=== PATIENT | female | born 1965 | race Caucasian/White ===

== ENCOUNTER 2016-07-05 12:34 | Emergency (ER) | payer MEDICARE ==
[~2016-07-05] VITALS: Ht 144.8 cm; Wt 72.6 kg
[~2016-07-05 12:34] MED LIST: ESCI20TA PO; LANTUS SC; QUET300T1 PO
[2016-07-05 12:52] VITALS: BP 145/84
--- NOTE | 2016-07-05 14:10 | NUR ---
Patient ambulated to bed 3 with family. RN evaluating patient at bedside.
--- NOTE | 2016-07-05 14:15 | NUR ---
PATIENT PRESENTS TO ED WITH C/O BUMP ON BOTTOM OF RIGHT FOOT X3 WEEKS. ALSO C/O SOB. DENIES N/V/D; SKIN IS PINK/WARM/DRY; AAOX4 WITH EVEN AND STEADY GAIT; LUNGS CLEAR BL; HR EVEN AND REGULAR; PT DENIES ANY FEVER, CP, OR COUGH AT THIS TIME; PATIENT STATES PAIN OF 8/10 AT THIS TIME; VSS; PATIENT POSITIONED FOR COMFORT; HOB ELEVATED; BEDRAILS UP X2; BED DOWN. ER MD MADE AWARE OF PT STATUS.
--- NOTE | 2016-07-05 14:58 | NUR ---
Dr. Leblanc evaluating patient at bedside.
[2016-07-05 15:30] VITALS: BP 115/78
--- NOTE | 2016-07-05 15:30 | NUR ---
Patient discharged with v/s stable. Written and verbal after care instructions given and explained. Patient verbalized understanding. Ambulatory with steady gait. All questions addressed prior to discharge. Advised to follow up with PMD.
== END 2016-07-05 15:30 | disposition home or self-care (01) ==
LOC: MED 12:34
DX: B07.9 Viral wart, unspecified (principal); R06.02 Shortness of breath; F03.90 Unspecified dementia, unspecified severity, without behavioral disturbance, psychotic disturbance, mood disturbance, and anxiety; J45.909 Unspecified asthma, uncomplicated; E11.9 Type 2 diabetes mellitus without complications; F17.210 Nicotine dependence, cigarettes, uncomplicated
CPT/HCPCS: 99283

== ENCOUNTER 2017-02-22 12:44 | Emergency (ER) | payer MEDICARE ==
[~2017-02-22] VITALS: Ht 149.9 cm; Wt 68.9 kg
[~2017-02-22 12:44] MED LIST changes: -ESCI20TA PO
[2017-02-22 13:31] VITALS: BP 106/67
[2017-02-22 17:43] LABS: BASOPHILS # (AUTO) 0.2 K/uL (0.00-0.22); HEMATOCRIT 44.1 % (36-48); HEMOGLOBIN 14.8 g/dL (12.0-16.0); LYMPHOCYTES # (AUTO) 1.8 K/uL (2.5-16.5); MEAN CORPUSCULAR HEMOGLOBIN 30 pg (27-31); MEAN CORPUSCULAR HGB CONC 34 g/dL (33-37); MEAN CORPUSCULAR VOLUME 89 fL (80-94); MONOCYTES # (AUTO) 0.3 K/uL (0.8-1.0); NEUTROPHILS # (AUTO) 2.2 K/uL (1.8-7.7); PLATELET COUNT (AUTO) 65 K/uL (140-450); RED BLOOD CELL COUNT(AUTO) 4.95 MIL/uL (4.20-5.40); RED CELL DISTRIBUTION WIDTH 13.4 % (11.6-13.7); WHITE BLOOD COUNT (AUTO) 4.5 K/uL (4.8-10.8)
[2017-02-22 17:59] LABS: APPEARANCE,URINE CLEAR (CLEAR); BILIRUBIN,URINE NEGATIVE (NEGATIVE); BLOOD, URINE NEGATIVE (NEGATIVE); LEUKOCYTE ESTERASE ,URINE NEGATIVE (NEGATIVE); NITRITE, URINE NEGATIVE (NEGATIVE); UGLUCOSE 3+ (NEGATIVE)
--- NOTE | 2017-02-22 18:00 | NUR ---
NO ANSWER IN ER LOBBY
--- NOTE | 2017-02-22 18:00 | NUR ---
PATIENT LEFT WITHOUT BEING SEEN BY DR. Isabel. NO FURTHER CARE PROVIDED FOR PATIENT.
[2017-02-22 18:28] LABS: ALBUMIN 3.3 g/dL (3.4-5.0); ANION GAP 11.9 (8-16); CARBON DIOXIDE 27.4 mmol/L (21-32); POTASSIUM 4.3 mmol/L (3.5-5.1); TOTAL BILIRUBIN 1.3 mg/dL (0.0-1.0)
[2017-02-22 18:29] LABS: COLOR,URINE YELLOW (YELLOW)
--- NOTE | 2017-02-22 18:30 | NUR ---
NO ANSWER IN ER LOBBY
--- NOTE | 2017-02-22 18:38 | NUR ---
LAB NOTIFIED BLOOD SUGAR 428, MD NOTIFIED PT HAS LEFT THE ER
== END 2017-02-22 18:00 | disposition left against medical advice (07) ==
LOC: MED 12:44
DX: R10.12 Left upper quadrant pain (principal); Z53.21 Procedure and treatment not carried out due to patient leaving prior to being seen by health care provider
CPT/HCPCS: 36415; 80053; 81003; 82948; 83690; 85025; 99281

== ENCOUNTER 2017-09-17 10:16 | Emergency (ER) | payer MEDICARE ==
[~2017-09-17] VITALS: Ht 147.3 cm; Wt 70.8 kg
[2017-09-17 10:24] VITALS: BP 146/91
[2017-09-17] MEDS ORDERED: LACTULOSE 20 GM/30 ML UDC PO ONE (10:40)
[2017-09-17] MEDS ORDERED: SODIUM PHOSPHATE 118 ML ENEM RC ONE (10:40)
[2017-09-17] MEDS ORDERED: KETOROLAC 60 MG/2 ML VIAL IM ONE (10:40)
--- NOTE | 2017-09-17 10:40 | NUR ---
PT. CAME INTO THE ED DUE TO ABD PAIN X 1 MONTH. DENIES ANY N/V/D. PT. HAS 9/10 PAIN THAT IS DESCRIBED CRAMPING ALL OVER ABD X 1 MONTH. PT. HAS ROUND AND SOFT ABD UPON PALPATION. LNM: YESTERDAY PT. STATES " I WENT BUT I WENT A LITTLE BIT AND IT IS VERY HARD IT HURTS". PT. DENIES ANY FEVERS. BS ACTIVE X4 QUADRANTS. ER MD NOTIFIED. WILL CONTINUE TO MONITOR. BED IN LOWEST POSITION.
--- NOTE | 2017-09-17 11:07 | NUR ---
PT. AMBULATED TO RESTROOM W/ STEADY GAIT. WILL CONTINUE TO MONITOR.
[2017-09-17 11:09] LABS: APPEARANCE,URINE CLEAR (CLEAR); BILIRUBIN,URINE NEGATIVE (NEGATIVE); BLOOD, URINE TRACE-L (NEGATIVE); COLOR,URINE YELLOW (YELLOW); LEUKOCYTE ESTERASE ,URINE NEGATIVE (NEGATIVE); NITRITE, URINE NEGATIVE (NEGATIVE); UGLUCOSE NEGATIVE (NEGATIVE)
[2017-09-17 11:21] LABS: RBC,URINE NONE SEEN /HPF (0-5); WBC,URINE NONE SEEN /HPF (0-5)
[2017-09-17 11:45] VITALS: BP 140/86
--- NOTE | 2017-09-17 11:45 | NUR ---
Patient discharged with v/s stable. Written and verbal after care instructions given and explained. Patient alert, oriented and verbalized understanding of instructions. Ambulatory with steady gait. All questions addressed prior to discharge. ID band removed. Patient advised to follow up with PMD. Rx of lactulose given. Patient educated on indication of medication including possible reaction and side effects. Opportunity to ask questions provided and answered.
== END 2017-09-17 11:45 | disposition home or self-care (01) ==
LOC: MED 10:16
DX: K59.03 Drug induced constipation (principal); T40.605A Adverse effect of unspecified narcotics, initial encounter; K56.41 Fecal impaction; Y92.89 Other specified places as the place of occurrence of the external cause; J45.909 Unspecified asthma, uncomplicated; E11.9 Type 2 diabetes mellitus without complications; F03.90 Unspecified dementia, unspecified severity, without behavioral disturbance, psychotic disturbance, mood disturbance, and anxiety; Z79.899 Other long term (current) drug therapy
CPT/HCPCS: 74018; 81001; 81025; 96372; 99285; J1885; Q0092

== ENCOUNTER 2017-10-11 15:32 | Emergency (ER) | payer MEDICARE ==
[~2017-10-11] VITALS: Ht 144.8 cm; Wt 67.6 kg
[2017-10-11 15:55] VITALS: BP 150/72
[2017-10-11 16:00] VITALS: BP 150/72
--- NOTE | 2017-10-11 16:02 | NUR ---
PATIENT AMB. TO BED #10
--- NOTE | 2017-10-11 19:05 | NUR ---
PT LEFT WITHOUT MD TO SEEN AT THIS TIME.
== END 2017-10-11 19:05 | disposition left against medical advice (07) ==
LOC: MED 15:32
DX: M25.562 Pain in left knee (principal); Z53.21 Procedure and treatment not carried out due to patient leaving prior to being seen by health care provider
CPT/HCPCS: 81002; 81025; 82948

== ENCOUNTER 2019-11-09 08:39 | Emergency (ER) | payer BC, MEDICARE ==
[~2019-11-09] VITALS: Ht 151.1 cm; Wt 70.3 kg
[2019-11-09 08:46] VITALS: BP 179/127
--- NOTE | 2019-11-09 08:50 | NUR ---
PT AMBULATED TO ER BED 11
--- NOTE | 2019-11-09 08:55 | NUR ---
54 YO female co right upper quad pain. pain is mostly in the lower back. denies n/v/d. no injury. Pt states hx gallstones. Hx- gallstones NKA
--- NOTE | 2019-11-09 08:55 | NUR ---
DR. MARIE EVALUATING PT AT BEDSIDE
[2019-11-09] MEDS ORDERED: NACL 0.9% 500 ML IV ONE (09:01)
[2019-11-09] MEDS ORDERED: KETOROLAC 30 MG/ML VIAL IVP ONE (09:05)
[2019-11-09 09:33] LABS: BASOPHILS % (AUTO) 0.6 % (0.0-2.0); EOSINOPHILS # (AUTO) 0.1 K/uL (0-0.4); LYMPHOCYTES # (AUTO) 1.1 K/uL (2.5-16.5); LYMPHOCYTES % (AUTO) 26.8 % (20.5-51.1); MEAN CORPUSCULAR HEMOGLOBIN 28 pg (27-31); MEAN CORPUSCULAR HGB CONC 34 g/dL (33-37); MEAN CORPUSCULAR VOLUME 80.6 fL (80-94); MONOCYTES # (AUTO) 0.2 K/uL (0.8-1.0); MONOCYTES % (AUTO) 5.7 % (1.7-9.3); NEUTROPHILS # (AUTO) 2.7 K/uL (1.8-7.7); NEUTROPHILS % (AUTO) 64.9 % (42.2-75.2); PLATELET COUNT (AUTO) 119 K/uL (140-450); RED BLOOD CELL COUNT(AUTO) 4.72 MIL/uL (4.20-5.40); RED CELL DISTRIBUTION WIDTH 13.9 % (11.6-13.7); WHITE BLOOD COUNT (AUTO) 4.2 K/uL (4.8-10.8)
[2019-11-09 09:51] LABS: ANION GAP 12.1 (8-16); CARBON DIOXIDE 26.1 mmol/L (21-32); CREATININE 0.9 mg/dL (0.6-1.3); POTASSIUM 4.2 mmol/L (3.5-5.1); TOTAL BILIRUBIN 0.6 mg/dL (0.0-1.0)
--- NOTE | 2019-11-09 09:59 | NUR ---
PT TAKEN TO RAD VIA MEGHANA
--- NOTE | 2019-11-09 11:01 | NUR ---
DR. MARIE SPEAKING W/ PT AT BEDSIDE
[2019-11-09 11:17] VITALS: BP 157/100
--- NOTE | 2019-11-09 11:18 | NUR ---
Patient discharged with v/s stable. Written and verbal after care instructions given and explained. Patient alert, oriented and verbalized understanding of instructions. Ambulatory with steady gait. All questions addressed prior to discharge. ID band removed. Patient advised to follow up with PMD. Rx of MINERAL OIL, MIRALAX AND TORADOL given. Patient educated on indication of medication including possible reaction and side effects. Opportunity to ask questions provided and answered.
== END 2019-11-09 11:18 | disposition home or self-care (01) ==
LOC: MED 08:39
DX: K59.00 Constipation, unspecified (principal); K80.20 Calculus of gallbladder without cholecystitis without obstruction; E11.65 Type 2 diabetes mellitus with hyperglycemia; E86.0 Dehydration; J45.909 Unspecified asthma, uncomplicated; F03.90 Unspecified dementia, unspecified severity, without behavioral disturbance, psychotic disturbance, mood disturbance, and anxiety; F17.200 Nicotine dependence, unspecified, uncomplicated; Z98.890 Other specified postprocedural states; Z79.4 Long term (current) use of insulin; Z79.899 Other long term (current) drug therapy
CPT/HCPCS: 36415; 74176; 80053; 81002; 83690; 85025; 96361; 96374; 99284; J1885; J7030; 81025

== ENCOUNTER 2019-12-22 10:45 | Emergency (ER) | payer BC ==
[~2019-12-22] VITALS: Ht 144.8 cm; Wt 68.0 kg
[2019-12-22 10:56] VITALS: BP 207/113
--- NOTE | 2019-12-22 11:02 | NUR ---
Dr. Patricia is evaluating the patient at bedside.
--- NOTE | 2019-12-22 11:23 | NUR ---
Called [facility].
--- NOTE | 2019-12-22 11:26 | NUR ---
Patient taken to CT scan via gurney by [facility] [employer].
--- NOTE | 2019-12-22 11:27 | NUR ---
54 Y/O FEMALE PRESENT TO ED C/C HEAD ACHE RADIATING TO NECK X1.5 WEEKS. PT STATES SHE HAS BEEN EXPERIENCING INCREASED DIZZINESS, N/V IN THE MORNING X3 DAYS. STATES HAVING DIFFICULTY AMBULATING AND USING CANE FOR ASSISTANCE. DENIES TRAUMA TO HEAD.PT STATES HAVING INCREASED SENSITIVITY TO LIGHT IN THE RIGHT EYE.DENIES ANY COUGH/SOB/FEVER. PT HAS BEEN TAKING EXCEDRIN FOR HEADACHE. NO NEURO DEFFICITS, AAOX4. STRENGTH EQUAL BILATERAL UPPER AND LOWER EXTREMITIES, SPEECH CLEAR, GCS 15. RX: LISINOPRIL 20MG PT STATES SHE TOOK TWO LISINOPRIL THIS MORNING DENIES ANY VISUAL CHANGES
--- NOTE | 2019-12-22 11:33 | NUR ---
Patient returned from CT scan. RN reevaluating the patient at bedside.
--- NOTE | 2019-12-22 11:37 | NUR ---
Dr. Patricia is reevaluating the patient at bedside.
[2019-12-22] MEDS ORDERED: KETOROLAC 15 MG/ML VIAL IVP ONE (12:25)
[2019-12-22] MEDS ORDERED: ENALAPRILAT 2.5 MG/2 ML VIAL IVP ONE (12:25)
[2019-12-22 12:45] LABS: BASOPHILS % (AUTO) 0.8 % (0.0-2.0); EOSINOPHILS # (AUTO) 0.1 K/uL (0-0.4); EOSINOPHILS % (AUTO) 1.5 % (0.0-4.0); HEMATOCRIT 38.4 % (36-48); HEMOGLOBIN 13.1 g/dL (12.0-16.0); LYMPHOCYTES # (AUTO) 1.6 K/uL (2.5-16.5); LYMPHOCYTES % (AUTO) 32.3 % (20.5-51.1); MEAN CORPUSCULAR HEMOGLOBIN 27 pg (27-31); MEAN CORPUSCULAR HGB CONC 34 g/dL (33-37); MEAN CORPUSCULAR VOLUME 80.1 fL (80-94); MONOCYTES # (AUTO) 0.3 K/uL (0.8-1.0); MONOCYTES % (AUTO) 6.6 % (1.7-9.3); NEUTROPHILS # (AUTO) 2.8 K/uL (1.8-7.7); NEUTROPHILS % (AUTO) 58.8 % (42.2-75.2); PLATELET COUNT (AUTO) 111 K/uL (140-450); RED BLOOD CELL COUNT(AUTO) 4.79 MIL/uL (4.20-5.40); RED CELL DISTRIBUTION WIDTH 14.5 % (11.6-13.7); WHITE BLOOD COUNT (AUTO) 4.8 K/uL (4.8-10.8)
[2019-12-22 12:57] LABS: ALBUMIN 2.8 g/dL (3.4-5.0); ANION GAP 12.6 (8-16); CARBON DIOXIDE 27.3 mmol/L (21-32); CREATININE 1.1 mg/dL (0.6-1.3); POTASSIUM 3.9 mmol/L (3.5-5.1); TOTAL BILIRUBIN 0.4 mg/dL (0.0-1.0)
--- NOTE | 2019-12-22 12:57 | NUR ---
critical systems technician at bedside.
--- NOTE | 2019-12-22 14:18 | NUR ---
Patient discharged with v/s stable. Written and verbal after care instructions given and explained. Patient alert, oriented and verbalized understanding of instructions. Ambulatory with steady gait. All questions addressed prior to discharge. ID band removed. Patient advised to follow up with PMD. Rx of NAPROXEN, ZOFRAN given. Patient educated on indication of medication including possible reaction and side effects. Opportunity to ask questions provided and answered.
[2019-12-22 14:24] VITALS: BP 162/91
== END 2019-12-22 14:18 | disposition home or self-care (01) ==
LOC: MED 10:45
DX: R51.9 Headache, unspecified (principal); F17.210 Nicotine dependence, cigarettes, uncomplicated; B19.20 Unspecified viral hepatitis C without hepatic coma; E11.9 Type 2 diabetes mellitus without complications; F03.90 Unspecified dementia, unspecified severity, without behavioral disturbance, psychotic disturbance, mood disturbance, and anxiety; I10 Essential (primary) hypertension; J45.909 Unspecified asthma, uncomplicated; Z71.6 Tobacco abuse counseling; Z98.890 Other specified postprocedural states; Z79.899 Other long term (current) drug therapy
CPT/HCPCS: 36415; 70450; 71045; 80053; 84484; 85025; 85610; 85730; 93005; 96374; 96375; 99285; J1885; J3490; Q0092

== ENCOUNTER 2020-01-27 12:28 | Emergency (ER) | payer BC ==
[~2020-01-27] VITALS: Ht 144.8 cm; Wt 67.1 kg
[2020-01-27 12:51] VITALS: BP 149/105
--- NOTE | 2020-01-27 13:55 | NUR ---
PT W/C ASSISTED TO [facility].Patient being evaluated by DR GRIFFIN at bedside.
--- NOTE | 2020-01-27 13:56 | NUR ---
SWETA GEIGER C/O RIGHT EYE PROBLEM, LOSS OF BALANCE, DIZZINESS X YESTERDAY. MED HX: HTN, DM, HLD,CATARACT RIGHT EYE VA: RIGHT EYE CATARACT, LEFT , BOTH EYE Addendum: 01/27/20 at 1358 by [facility] PT HAS AN APPOINTMENT FOR RIGHT EYE SURGERY TOMORROW.
--- NOTE | 2020-01-27 14:38 | NUR ---
PT AMBULATED TO RESTROOM WITH STEADY GAIT
--- NOTE | 2020-01-27 14:38 | NUR ---
PT RETURNED FROM CT VIA W/C
--- NOTE | 2020-01-27 14:39 | NUR ---
PT AMBULATED TO BED C WITH STEADY GAIT AND USE OF CANE
[2020-01-27 15:00] VITALS: BP 149/105
--- NOTE | 2020-01-27 15:40 | NUR ---
Patient discharged with v/s stable. Written and verbal after care instructions given and explained. Patient alert, oriented and verbalized understanding of instructions. Ambulatory with steady gait. All questions addressed prior to discharge. ID band removed. Patient advised to follow up with PMD.
== END 2020-01-27 15:40 | disposition home or self-care (01) ==
LOC: MED 12:28
DX: H49.9 Unspecified paralytic strabismus (principal); E11.9 Type 2 diabetes mellitus without complications; F17.210 Nicotine dependence, cigarettes, uncomplicated; E78.5 Hyperlipidemia, unspecified; Z98.890 Other specified postprocedural states; Z79.4 Long term (current) use of insulin; Z79.899 Other long term (current) drug therapy
CPT/HCPCS: 70450; 81002; 99284

== ENCOUNTER 2020-11-15 10:18 | Emergency (ER) | payer BC, SELFPAY ==
[~2020-11-15] VITALS: Ht 144.8 cm; Wt 61.7 kg
[2020-11-15 10:39] VITALS: BP 213/110
[2020-11-15] MEDS ORDERED: LACT-103 PO (12:02)
[2020-11-15] MEDS ORDERED: PRED20TA5 PO (12:02)
[2020-11-15] MEDS ORDERED: KETO5SOL7 RIGHT EYE (12:02)
[2020-11-15 12:23] VITALS: BP 205/118
== END 2020-11-15 12:23 | disposition home or self-care (01) ==
LOC: MED 10:18
DX: K59.00 Constipation, unspecified (principal); H10.9 Unspecified conjunctivitis; J45.909 Unspecified asthma, uncomplicated; I10 Essential (primary) hypertension; E11.9 Type 2 diabetes mellitus without complications; F03.90 Unspecified dementia, unspecified severity, without behavioral disturbance, psychotic disturbance, mood disturbance, and anxiety; F17.200 Nicotine dependence, unspecified, uncomplicated; Z79.899 Other long term (current) drug therapy; Z79.4 Long term (current) use of insulin
CPT/HCPCS: 99283

== ENCOUNTER 2020-12-30 07:29 | Emergency (ER) | payer BC, SELFPAY ==
[~2020-12-30] VITALS: Ht 144.8 cm; Wt 73.9 kg
[~2020-12-30 07:29] MED LIST changes: +KETO5SOL7 RIGHT EYE; +LACT-103 PO; +PRED20TA5 PO
[2020-12-30 07:37] VITALS: BP 211/115
--- NOTE | 2020-12-30 07:45 | NUR ---
PATIENT AMBULATED TO BED 4.
--- NOTE | 2020-12-30 07:46 | NUR ---
pt had to go to the bathroom, emt Le at bedside waiting to do ekg, ER/MD Dr. Tafoya notifted.
--- NOTE | 2020-12-30 07:49 | NUR ---
Dr. Tafoya at bedside evaluating patient.
--- NOTE | 2020-12-30 07:53 | NUR ---
EKG AT BEDSIDE.
[2020-12-30] MEDS ORDERED: NITROGLYCERIN 0.4 MG TAB SL ONE ×3 (07:55→09:00)
[2020-12-30] MEDS ORDERED: ASPIRIN 81 MG TAB.CHEW PO ONE (07:55)
--- NOTE | 2020-12-30 07:59 | NUR ---
55 Y/O F BIB SELF FROM HOME, PATIENT PRESENTS TO ED WITH SHARP CP FOR 1 WEEK, WORSENED THIS MORNING. PT STATES SHE IS ALSO HAVING SOME SOB AND STATES, "MY HEART IS HURTING". DENIES N/V/D; SKIN IS PINK/WARM/DRY; AAOX4 WITH EVEN AND STEADY GAIT; LUNGS CLEAR BL; HR EVEN AND TACHY AT 102 RATE; PT DENIES ANY FEVER OR COUGH AT THIS TIME; PATIENT STATES PAIN OF 9/10 AT THIS TIME; PATIENT POSITIONED FOR COMFORT; HOB ELEVATED; BEDRAILS UP X2; BED DOWN. ER MD MADE AWARE OF PT STATUS. PMH: DM2, HTN NKA MED: GABAPENTIN, SEROQUIL, BENZEPRIL
[2020-12-30 08:13] LABS: BASOPHILS % (AUTO) 0.5 % (0.0-2.0); EOSINOPHILS % (AUTO) 0.2 % (0.0-4.0); LYMPHOCYTES # (AUTO) 0.5 K/uL (2.5-16.5); LYMPHOCYTES % (AUTO) 7.9 % (20.5-51.1); MEAN CORPUSCULAR HEMOGLOBIN 27 pg (27-31); MEAN CORPUSCULAR HGB CONC 34 g/dL (33-37); MEAN CORPUSCULAR VOLUME 78.2 fL (80-94); MONOCYTES # (AUTO) 0.3 K/uL (0.8-1.0); MONOCYTES % (AUTO) 4.9 % (1.7-9.3); NEUTROPHILS # (AUTO) 5.4 K/uL (1.8-7.7); NEUTROPHILS % (AUTO) 86.5 % (42.2-75.2); PLATELET COUNT (AUTO) 139 K/uL (140-450); RED BLOOD CELL COUNT(AUTO) 4.48 MIL/uL (4.20-5.40); WHITE BLOOD COUNT (AUTO) 6.2 K/uL (4.8-10.8)
[2020-12-30] MEDS ORDERED: BENAZEPRIL 10 MG TAB PO STA (08:26)
[2020-12-30 08:35] LABS: ALBUMIN 2.4 g/dL (3.4-5.0); ANION GAP 10.6 (8-16); CARBON DIOXIDE 25.6 mmol/L (21-32); CREATININE 1.5 mg/dL (0.6-1.3); POTASSIUM 4.2 mmol/L (3.5-5.1); TOTAL BILIRUBIN 0.6 mg/dL (0.0-1.0)
[2020-12-30] MEDS ORDERED: INSU100I28 SQ (08:48)
[2020-12-30] MEDS ORDERED: [UNRECOGNIZED DRUG - CODE] PO (08:48)
[2020-12-30] MEDS ORDERED: BENA5TAB36 PO (08:48)
[2020-12-30] MEDS ORDERED: GABA100C PO (08:48)
[2020-12-30] MEDS ORDERED: CLONIDINE HYDROCHLORIDE 0.1 MG TAB PO ONE (09:20)
[2020-12-30] MEDS ORDERED: NACL 0.9% 500 ML IV ONE (09:20)
--- NOTE | 2020-12-30 09:23 | NUR ---
KAYLAH WAS SWABBED AT THIS TIME.
--- NOTE | 2020-12-30 10:20 | NUR ---
TEVIN YOUNG IN ROOM AT THIS TIME STARTING US GUIDED IV.
--- NOTE | 2020-12-30 10:27 | NUR ---
PT TAKEN TO CT AT THIS TIME.
--- NOTE | 2020-12-30 10:45 | NUR ---
PT AMBULATED WITH EVEN AND STEADY GAIT TO BATHROOM AT THIS TIME.
[2020-12-30] MEDS ORDERED: LABETALOL 100 MG/20 ML VIAL IVP ONE ×2 (11:00→11:35)
[2020-12-30 11:25] LABS: FREE T4 (FREE THYROXINE) 0.55 ng/dL (0.76-1.46); THYROID STIMULATING HORMONE 1.15 uIU/mL (0.34-3.74)
--- NOTE | 2020-12-30 11:42 | NUR ---
PT AMBULATED WITH EVEN AND STEADY GAIT TO BATHROOM, PT RETURNED TO ROOM AND WAS GIVEN SUGAR FREE JELLO AT THIS TIME, PER TEVIN WEBER OKAY.
--- NOTE | 2020-12-30 13:16 | NUR ---
CAME BACK FROM LUNCH BREAK, PT MISSING, NOT IN BATHROOMS, OTHER ROOMS OR LOBBY. MIXING AND MOLDING MACHINE OPERATOR NOTIFIED AT THIS TIME.
[2020-12-30] MEDS ORDERED: ACETAMINOPHEN 325 MG TAB PO PRN (13:25)
[2020-12-30] MEDS ORDERED: guaiFENesin DM 200/20 MG-10 ML 10 ML UDC PO PRN (13:25)
[2020-12-30] MEDS ORDERED: HYDROcodone/APAP 7.5/325 MG 1 TAB PO PRN (13:25)
[2020-12-30] MEDS ORDERED: ZOLPIDEM 5 MG TAB PO PRN (13:25)
[2020-12-30] MEDS ORDERED: ONDANSETRON 4 MG/2 ML VIAL IM/IVP PRN (13:25)
[2020-12-30] MEDS ORDERED: POTASSIUM CHLORIDE 10 MEQ TABER PO PRN (13:25)
[2020-12-30] MEDS ORDERED: DOCUSATE SODIUM 100 MG GELCAP PO PRN (13:25)
--- NOTE | 2020-12-30 13:29 | NUR ---
PATIENT ELOPED FROM FACILITY. DISCHARGE INSTRUCTIONS NOT GIVEN TO PATIENT. and er/md Dr. Tafoya NOTIFIED.
[2020-12-30] MEDS ORDERED: hydrALAZINE 20 MG/ML VIAL IVP PRN (13:30)
[2020-12-30] MEDS ORDERED: DEXTROSE 50% 50 ML SYR IVP PRN (13:30)
[2020-12-30] MEDS ORDERED: INSULIN LISPRO SLIDING SCALE 100 UNITS/ML VIAL SUBQ PRN (13:30)
--- NOTE | 2020-12-30 13:30 | NUR ---
[employer] WAS CALLED FOR PT ELOPEMENT WITH IV PLACEMENT. SECURITY CONFIRMED PT WAS IN CAR AND LEFT. SECURITY UNABLE TO GIVE DESCRIPTION OF CAR. SPOKE WITH ELLYN, WAS REFERRED TO [facility].
[2020-12-30 13:33] VITALS: BP 183/97
--- NOTE | 2020-12-30 13:33 | NUR ---
Called susan sparks for welfare check s/p pt ELOPED with 2 IV in her rt arm/ac
[2020-12-30 13:54] LABS: PROTHROMBIN TIME 10.3 secs (10.8-13.4)
[2020-12-30] MEDS ORDERED: METOPROLOL 50 MG TAB PO SCH (14:00)
[2020-12-30 14:20] LABS: APPEARANCE,URINE CLEAR (CLEAR); BILIRUBIN,URINE NEGATIVE (NEGATIVE); BLOOD, URINE 3+ (NEGATIVE); COLOR,URINE YELLOW (YELLOW); LEUKOCYTE ESTERASE ,URINE NEGATIVE (NEGATIVE); NITRITE, URINE NEGATIVE (NEGATIVE); UGLUCOSE 3+ (NEGATIVE)
[2020-12-30 14:32] LABS: RBC,URINE 20-50 /HPF (0-5); WBC,URINE NONE SEEN /HPF (0-5)
[2020-12-30 14:47] LABS: ALBUMIN 2.5 g/dL (3.4-5.0); ANION GAP 11.1 (8-16); CARBON DIOXIDE 25.4 mmol/L (21-32); CHOL/HDL RATIO 5.3 (1-4.5); CREATININE 1.4 mg/dL (0.6-1.3); FREE T4 (FREE THYROXINE) 0.58 ng/dL (0.76-1.46); MAGNESIUM 1.8 mg/dL (1.8-2.4); PHOSPHORUS 4.6 mg/dL (2.5-4.9); POTASSIUM 4.5 mmol/L (3.5-5.1); THYROID STIMULATING HORMONE 1.1 uIU/mL (0.34-3.74); TOTAL BILIRUBIN 0.6 mg/dL (0.0-1.0)
[2020-12-30 15:13] LABS: BARBITURATE, URINE NEGATIVE ng/ml (NEG <=200); BENZODIAZEPINE, URINE NEGATIVE ng/mL (NEG <=200); CANNABINOID, URINE POSITIVE ng/mL (NEG <=50); COCAINE, URINE NEGATIVE ng/mL (NEG <=300); OPIATE, URINE POSITIVE ng/mL (NEG <=2000); PHENCYCLIDINE SCREEN,URINE NEGATIVE ng/mL (NEG <=25)
[2020-12-30] MEDS ORDERED: BLOOD GLUCOSE MONITORING 1 DEV DEV FS SCH (16:30)
[2020-12-30] MEDS ORDERED: QUEtiapine FUMARATE 100 MG TAB PO SCH (21:00)
[2020-12-30] MEDS ORDERED: INSULIN LANTUS 100 UNITS/ML 10 ML VIAL SUBQ SCH (21:00)
[2020-12-31] MEDS ORDERED: GABAPENTIN 100 MG CAP PO SCH (09:00)
[2020-12-31] MEDS ORDERED: PANTOPRAZOLE 40 MG TABEC PO SCH (09:00)
[2020-12-31 09:42] LABS: T4 (THYROXINE) 3.7 ug/dL (4.5 - 12.0)
--- NOTE | 2021-01-05 00:22 | NUR ---
LATE ENTRY- NS BOLUS DISCONTINUED AT 1040
== END 2020-12-30 13:23 | disposition admitted as inpatient to this hospital (09) ==
LOC: MED 07:29 → MTU 13:23 → MED 13:23 → UNDOADMIN 13:23 → UNDODISIN 13:29
DX: I16.1 Hypertensive emergency (principal); N17.0 Acute kidney failure with tubular necrosis; G93.41 Metabolic encephalopathy; E43 Unspecified severe protein-calorie malnutrition; I10 Essential (primary) hypertension; E11.9 Type 2 diabetes mellitus without complications; Z20.822 Contact with and (suspected) exposure to COVID-19; J45.909 Unspecified asthma, uncomplicated; F17.210 Nicotine dependence, cigarettes, uncomplicated; E87.1 Hypo-osmolality and hyponatremia; Z68.35 Body mass index [BMI] 35.0-35.9, adult
CPT/HCPCS: 36415; 71045; 71275; 80053; 80061; 80305; 81001; 82150; 83036; 83690; 83735; 83880; 84100; 84436; 84439; 84443; 84479; 84484; 85025; 85379; 85610; 85730; 87426; 93005; 96361; 96374; 96375; 99291; J3490; Q0092; Q9967; 96376; 99285; J1815

== ENCOUNTER 2022-01-20 10:19 | Emergency (ER) | payer BC ==
[~2022-01-20] VITALS: Ht 147.3 cm; Wt 70.3 kg
[~2022-01-20 10:19] MED LIST changes: +BENA5TAB36 PO; +GABA100C PO; +INSU100I28 SQ; +[UNRECOGNIZED DRUG - CODE] PO
[2022-01-20 10:26] VITALS: BP 138/84
--- NOTE | 2022-01-20 11:41 | NUR ---
C/O LEFT SIDED FACIAL [id number], DENIES TRAUMA/INJURY, PER PT SHE "SLEPT ON THAT SIDE TOO LONG', NO SWELLING, REDNESS OR OVERT DEFORMITIES NOTED NKA PMH: DM, HTN
[2022-01-20] MEDS ORDERED: NAPR-54 PO (11:50)
[2022-01-20] MEDS ORDERED: AMOX-999 PO (11:50)
== END 2022-01-20 12:00 | disposition home or self-care (01) ==
LOC: MED 10:19
DX: K08.89 Other specified disorders of teeth and supporting structures (principal); J45.909 Unspecified asthma, uncomplicated; E11.9 Type 2 diabetes mellitus without complications; I10 Essential (primary) hypertension; Z79.899 Other long term (current) drug therapy; Z79.4 Long term (current) use of insulin
CPT/HCPCS: 99283

== ENCOUNTER 2022-06-20 12:08 | Emergency (ER) | payer BC ==
[~2022-06-20] VITALS: Ht 149.9 cm; Wt 70.3 kg
[~2022-06-20 12:08] MED LIST changes: +AMOX-999 PO; +KETO5DRO68 RIGHT EYE; -KETO5SOL7 RIGHT EYE; +NAPR-54 PO
[2022-06-20 12:11] VITALS: BP 181/96
--- NOTE | 2022-06-20 12:44 | NUR ---
57 YO FEMALE PRESENTS TO THE ED FOR HIGH BLOOD PRESSURE SBP IN THE 180S PER PATIENT SON. PATIENT STATES SHE FELT DIZZY. WAS IN THE HOSPITAL FOR ABOUT A MONTH BECAUSE OF FUNGAL INFECTION IN HER SINUSES. HX OF STROKE IN MARCH, LEFT EYE BLINDNESS, RIGHT EYE CATARACT, DIABETES,
[2022-06-20] MEDS ORDERED: hydrALAZINE 20 MG/ML VIAL IVP ONE ×2 (12:55→14:05)
--- NOTE | 2022-06-20 13:21 | NUR ---
PATIENT TAKEN TO CT
[2022-06-20 13:52] LABS: BASOPHILS # (AUTO) 0.1 K/uL (0.00-0.22); BASOPHILS % (AUTO) 1.3 % (0.0-2.0); EOSINOPHILS # (AUTO) 0.1 K/uL (0-0.4); EOSINOPHILS % (AUTO) 1.9 % (0.0-4.0); HEMATOCRIT 24.9 % (36-48); HEMOGLOBIN 8.5 g/dL (12.0-16.0); LYMPHOCYTES % (AUTO) 21.3 % (20.5-51.1); MEAN CORPUSCULAR HEMOGLOBIN 29 pg (27-31); MEAN CORPUSCULAR HGB CONC 34 g/dL (33-37); MEAN CORPUSCULAR VOLUME 85.1 fL (80-94); MONOCYTES # (AUTO) 0.3 K/uL (0.8-1.0); MONOCYTES % (AUTO) 6.6 % (1.7-9.3); NEUTROPHILS # (AUTO) 3.3 K/uL (1.8-7.7); NEUTROPHILS % (AUTO) 68.9 % (42.2-75.2); PLATELET COUNT (AUTO) 140 K/uL (140-450); RED BLOOD CELL COUNT(AUTO) 2.92 MIL/uL (4.20-5.40); RED CELL DISTRIBUTION WIDTH 16.3 % (11.6-13.7); WHITE BLOOD COUNT (AUTO) 4.8 K/uL (4.8-10.8)
[2022-06-20 14:08] LABS: ALBUMIN 2.1 g/dL (3.4-5.0); ANION GAP 12.4 (8-16); ASPARTATE AMINOTRANSFERASE 56 U/L (15-37); CARBON DIOXIDE 24.2 mmol/L (21-32); CHLORIDE 108 mmol/L (98-107); CREATININE 2.3 mg/dL (0.6-1.3); GFR ARICAN-AMERICAN 28 mL/min (>90); GLUCOSE 249 mg/dL (74-106); POTASSIUM 5.6 mmol/L (3.5-5.1); SODIUM SERUM 139 mmol/L (136-145); TOTAL BILIRUBIN 0.3 mg/dL (0.0-1.0); UREA NITROGEN, BLOOD 37 mg/dL (7-18)
[2022-06-20] MEDS ORDERED: SODIUM ZIRCONIUM CYCLOSILICATE 10 GM POWD.PACK PO ONE (14:30)
[2022-06-20 15:17] VITALS: BP 157/81
--- NOTE | 2022-06-20 15:18 | NUR ---
Patient discharged with v/s stable. Written and verbal after care instructions given and explained. Patient verbalized understanding. Wheel Chair Assisted with to car. All questions addressed prior to discharge. Advised to follow up with PMD.
[2022-06-20 15:48] LABS: APPEARANCE,URINE CLEAR (CLEAR); BILIRUBIN,URINE NEGATIVE (NEGATIVE); BLOOD, URINE TRACE-I (NEGATIVE); COLOR,URINE YELLOW (YELLOW); LEUKOCYTE ESTERASE ,URINE NEGATIVE (NEGATIVE); NITRITE, URINE NEGATIVE (NEGATIVE); PH,URINE 7.5 (5.0-9.0); UGLUCOSE 2+ (NEGATIVE)
[2022-06-20 16:02] LABS: RBC,URINE 0-5 /HPF (0-5); WBC,URINE 0-5 /HPF (0-5)
== END 2022-06-20 15:17 | disposition home or self-care (01) ==
LOC: MED 12:08
DX: E11.22 Type 2 diabetes mellitus with diabetic chronic kidney disease (principal); I12.9 Hypertensive chronic kidney disease with stage 1 through stage 4 chronic kidney disease, or unspecified chronic kidney disease; N18.9 Chronic kidney disease, unspecified; E87.5 Hyperkalemia; J45.909 Unspecified asthma, uncomplicated; Z86.73 Personal history of transient ischemic attack (TIA), and cerebral infarction without residual deficits; Z98.890 Other specified postprocedural states; Z79.899 Other long term (current) drug therapy; Z79.4 Long term (current) use of insulin; Z79.1 Long term (current) use of non-steroidal anti-inflammatories (NSAID); Z79.2 Long term (current) use of antibiotics
CPT/HCPCS: 36415; 70450; 71045; 80053; 81001; 84484; 85025; 93005; 96374; 99285; J0360; Q0092

== ENCOUNTER 2022-10-22 11:19 | Inpatient (IN) | payer BC ==
[~2022-10-22] VITALS: Ht 144.8 cm; Wt 79.8 kg
[2022-10-22 11:19] VITALS: BP 179/104; PULSE 100; RESP 10; TEMP 97.8; O2SAT 99
[2022-10-22 13:12] LABS: ALBUMIN 0.9 g/dL (3.4-5.0); ANION GAP 9.9 (8-16); CALCIUM 6.9 mg/dL (8.5-10.1); CREATININE 3.7 mg/dL (0.6-1.3); POTASSIUM 4.9 mmol/L (3.5-5.1); TOTAL BILIRUBIN 0.1 mg/dL (0.0-1.0); TOTAL PROTEIN, SERUM 4.6 g/dL (6.4-8.2)
[2022-10-22 13:14] LABS: LIPASE 26 U/L (73-393)
[2022-10-22 13:25] LABS: BASOPHILS % (AUTO) 0.6 % (0.0-2.0); EOSINOPHILS # (AUTO) 0.1 K/uL (0-0.4); EOSINOPHILS % (AUTO) 1.6 % (0.0-4.0); HEMATOCRIT 22.9 % (36-48); HEMOGLOBIN 7.8 g/dL (12.0-16.0); LYMPHOCYTES % (AUTO) 27.4 % (20.5-51.1); MEAN CORPUSCULAR HEMOGLOBIN 30 pg (27-31); MEAN CORPUSCULAR HGB CONC 34 g/dL (33-37); MEAN CORPUSCULAR VOLUME 87.8 fL (80-94); MONOCYTES # (AUTO) 0.3 K/uL (0.8-1.0); MONOCYTES % (AUTO) 7.8 % (1.7-9.3); NEUTROPHILS # (AUTO) 2.4 K/uL (1.8-7.7); NEUTROPHILS % (AUTO) 62.6 % (42.2-75.2); PLATELET COUNT (AUTO) 164 K/uL (140-450); RED BLOOD CELL COUNT(AUTO) 2.61 MIL/uL (4.20-5.40); RED CELL DISTRIBUTION WIDTH 14.7 % (11.6-13.7); WHITE BLOOD COUNT (AUTO) 3.8 K/uL (4.8-10.8)
[2022-10-22] MEDS ORDERED: CALCIUM GLUCONATE 10% 1,000 MG in NACL 0.9% 50 ML IV ONE (13:40)
[2022-10-22 13:53] LABS: APPEARANCE,URINE CLEAR (CLEAR); BILIRUBIN,URINE NEGATIVE (NEGATIVE); BLOOD, URINE NEGATIVE (NEGATIVE); COLOR,URINE YELLOW (YELLOW); LEUKOCYTE ESTERASE ,URINE NEGATIVE (NEGATIVE); NITRITE, URINE NEGATIVE (NEGATIVE); PROTEIN,URINE 3+ (NEGATIVE); UGLUCOSE TRACE (NEGATIVE); UROBILINOGEN,URINE 0.2 EU/dL (0.2 - 1)
[2022-10-22 14:09] LABS: BACTERIA,URINE 2+ /HPF (None Seen); RBC,URINE 0-5 /HPF (0-5); SQUAMOUS EPITHELIAL CELL,UR 80-100 /LPF (0-3 (FEW)); WBC,URINE 0-5 /HPF (0-5)
[2022-10-22] MEDS ORDERED: CALCIUM GLUC 1 GM/50 mL NS BAG 50 ML IV ONE (14:19)
[2022-10-22 16:27] VITALS: PULSE 90
[2022-10-22 16:32] LABS: ANION GAP 12.7 (8-16); CALCIUM 7.1 mg/dL (8.5-10.1); CARBON DIOXIDE 22.3 mmol/L (21-32); CREATININE 3.7 mg/dL (0.6-1.3)
[2022-10-22 17:00] VITALS: PULSE 68; RESP 20
[2022-10-22 20:00] VITALS: BP 159/99; PULSE 91; PULSE 95; RESP 18; TEMP 97.6; O2SAT 100
[2022-10-22] MEDS ORDERED: PANTOPRAZOLE 40 MG TABEC PO ONE (22:20)
[2022-10-22] MEDS ORDERED: MELATONIN 3 MG TAB PO PRN (22:20)
[2022-10-22] MEDS ORDERED: QUEtiapine FUMARATE 100 MG TAB ONE (23:13)
[2022-10-23] VITALS (9 sets, daily range): BP systolic 131–145; BP diastolic 49–91; PULSE 91–100; RESP 18; TEMP 96.6–98; O2SAT 95–100
[2022-10-23] MEDS ORDERED: ACETAMINOPHEN 325 MG TAB PO PRN (02:15)
[2022-10-23] MEDS ORDERED: ONDANSETRON 4 MG/2 ML VIAL IVP PRN (02:15)
[2022-10-23] MEDS ORDERED: DEXTROSE 50% 50 ML SYR IVP PRN (02:15)
[2022-10-23] MEDS ORDERED: POTASSIUM CHLORIDE 10 MEQ TABER PO PRN (02:15)
[2022-10-23] MEDS: NACL 0.9% 1,000 ML IV SCH (06:16)
[2022-10-23] MEDS: BLOOD GLUCOSE MONITORING 1 DEV DEV FS SCH ×4 (06:40→22:18)
[2022-10-23 06:43] LABS: BASOPHILS % (AUTO) 0.8 % (0.0-2.0); EOSINOPHILS # (AUTO) 0.1 K/uL (0-0.4); EOSINOPHILS % (AUTO) 2.2 % (0.0-4.0); HEMATOCRIT 22.1 % (36-48); HEMOGLOBIN 7.5 g/dL (12.0-16.0); LYMPHOCYTES # (AUTO) 1.1 K/uL (2.5-16.5); LYMPHOCYTES % (AUTO) 40.2 % (20.5-51.1); MEAN CORPUSCULAR HEMOGLOBIN 30 pg (27-31); MEAN CORPUSCULAR HGB CONC 34 g/dL (33-37); MEAN CORPUSCULAR VOLUME 88.3 fL (80-94); MONOCYTES # (AUTO) 0.2 K/uL (0.8-1.0); MONOCYTES % (AUTO) 7.8 % (1.7-9.3); NEUTROPHILS # (AUTO) 1.3 K/uL (1.8-7.7); PLATELET COUNT (AUTO) 144 K/uL (140-450); RED CELL DISTRIBUTION WIDTH 14.7 % (11.6-13.7); WHITE BLOOD COUNT (AUTO) 2.7 K/uL (4.8-10.8)
[2022-10-23 06:56] LABS: ANION GAP 12.5 (8-16); CALCIUM 6.8 mg/dL (8.5-10.1); CARBON DIOXIDE 22.6 mmol/L (21-32); CREATININE 3.6 mg/dL (0.6-1.3); POTASSIUM 5.1 mmol/L (3.5-5.1)
[2022-10-23 07:03] LABS: INR 1.15 (0.8-1.2); PARTIAL THROMBOPLASTIN TIME 27.1 secs (22-35.6)
[2022-10-23 07:06] LABS: LACTIC ACID 0.7 mmol/L (0.4-2.0)
[2022-10-23 07:22] LABS: CHOL/HDL RATIO 1.7 (1-4.5); FREE T4 (FREE THYROXINE) 0.39 ng/dL (0.76-1.46); MAGNESIUM 1.5 mg/dL (1.8-2.4); PHOSPHORUS 5.8 mg/dL (2.5-4.9); THYROID STIMULATING HORMONE 5.83 uIU/mL (0.34-3.74)
[2022-10-23] MEDS: GABAPENTIN 100 MG CAP PO SCH (08:48)
[2022-10-23] MEDS: DOCUSATE SODIUM 100 MG GELCAP PO SCH ×2 (08:48→21:55)
[2022-10-23] MEDS: LACTULOSE 20 GM/30 ML UDC PO SCH ×2 (08:49→21:56)
[2022-10-23] MEDS: BENAZEPRIL 5 MG TAB PO SCH (08:57)
[2022-10-23] MEDS ORDERED: KETOTIFEN FUMARATE RIGHT EYE SCH (09:00)
[2022-10-23] MEDS: PANTOPRAZOLE 40 MG INJ VIAL IVP SCH (11:36)
[2022-10-23] MEDS: INSULIN LISPRO SLIDING SCALE 100 UNITS/ML VIAL SUBQ PRN (17:02)
[2022-10-23] MEDS: MAG SULF 2000 MG/WATER PREMIX 50 ML IV PRN (20:21)
[2022-10-23 20:44] LABS: AMPHETAMINE, URINE NEGATIVE ng/ml (NEG <=1000); BARBITURATE, URINE NEGATIVE ng/ml (NEG <=200); BENZODIAZEPINE, URINE NEGATIVE ng/mL (NEG <=200); CANNABINOID, URINE NEGATIVE ng/mL (NEG <=50); COCAINE, URINE NEGATIVE ng/mL (NEG <=300); OPIATE, URINE POSITIVE ng/mL (NEG <=2000); PHENCYCLIDINE SCREEN,URINE NEGATIVE ng/mL (NEG <=25)
[2022-10-23] MEDS ORDERED: QUEtiapine FUMARATE 100 MG TAB PO SCH (21:00)
[2022-10-23] MEDS ORDERED: QUETIAPINE FUMARATE PO SCH (21:00)
[2022-10-23] MEDS: QUEtiapine FUMARATE 100 MG TAB PO SCH (21:55)
[2022-10-24] VITALS (8 sets, daily range): BP systolic 122–177; BP diastolic 72–104; PULSE 67–106; RESP 18; TEMP 96.8–98.8; O2SAT 97–99
[2022-10-24] MEDS: HYDROcodone/APAP 7.5/325 MG 1 TAB PO PRN ×3 (00:35→21:35)
[2022-10-24] MEDS: NACL 0.9% 1,000 ML IV SCH ×2 (05:58→18:15)
[2022-10-24] MEDS: BLOOD GLUCOSE MONITORING 1 DEV DEV FS SCH ×4 (06:05→22:03)
[2022-10-24 06:47] LABS: BASOPHILS % (AUTO) 0.6 % (0.0-2.0); EOSINOPHILS % (AUTO) 1.8 % (0.0-4.0); LYMPHOCYTES # (AUTO) 1.4 K/uL (2.5-16.5); LYMPHOCYTES % (AUTO) 51.4 % (20.5-51.1); MEAN CORPUSCULAR HEMOGLOBIN 30 pg (27-31); MEAN CORPUSCULAR HGB CONC 35 g/dL (33-37); MEAN CORPUSCULAR VOLUME 87.4 fL (80-94); MONOCYTES # (AUTO) 0.3 K/uL (0.8-1.0); MONOCYTES % (AUTO) 9.9 % (1.7-9.3); NEUTROPHILS % (AUTO) 36.3 % (42.2-75.2); PLATELET COUNT (AUTO) 138 K/uL (140-450); RED BLOOD CELL COUNT(AUTO) 2.23 MIL/uL (4.20-5.40); RED CELL DISTRIBUTION WIDTH 14.8 % (11.6-13.7); WHITE BLOOD COUNT (AUTO) 2.6 K/uL (4.8-10.8)
[2022-10-24 06:51] LABS: CALCIUM 6.7 mg/dL (8.5-10.1); CARBON DIOXIDE 23.1 mmol/L (21-32); CREATININE 3.5 mg/dL (0.6-1.3); POTASSIUM 5.1 mmol/L (3.5-5.1)
[2022-10-24 06:53] LABS: HEMATOCRIT 19.5 % (36-48); HEMOGLOBIN 6.8 g/dL (12.0-16.0)
[2022-10-24 06:54] LABS: MAGNESIUM 1.8 mg/dL (1.8-2.4); PHOSPHORUS 5.5 mg/dL (2.5-4.9)
[2022-10-24] MEDS: DOCUSATE SODIUM 100 MG GELCAP PO SCH (09:00)
[2022-10-24] MEDS: LACTULOSE 20 GM/30 ML UDC PO SCH ×2 (10:47→21:33)
[2022-10-24] MEDS: DOCUSATE 100 MG/10 ML UDC PO SCH ×2 (10:47→21:33)
[2022-10-24] MEDS: GABAPENTIN 100 MG CAP PO SCH (10:48)
[2022-10-24] MEDS: BENAZEPRIL 5 MG TAB PO SCH (10:48)
[2022-10-24] MEDS: PANTOPRAZOLE 40 MG INJ VIAL IVP SCH (11:13)
[2022-10-24] MEDS: INSULIN LISPRO SLIDING SCALE 100 UNITS/ML VIAL SUBQ PRN ×3 (11:51→22:09)
[2022-10-24] MEDS: hydrALAZINE 20 MG/ML VIAL IVP PRN ×2 (12:57→19:55)
[2022-10-24] MEDS: metroNIDAZOLE 500 MG/NS PREMIX 100 ML IV SCH ×2 (14:30→21:32)
[2022-10-24] MEDS: FUROSEMIDE 40 MG/4 ML VIAL IVP SCH (17:00)
[2022-10-24 17:21] LABS: BILIRUBIN,DIRECT 0.1 mg/dL (0.0-0.3); TOTAL BILIRUBIN 0.2 mg/dL (0.0-1.0)
[2022-10-24 21:14] LABS: BASOPHILS % (AUTO) 0.5 % (0.0-2.0); EOSINOPHILS % (AUTO) 1.1 % (0.0-4.0); HEMATOCRIT 32.6 % (36-48); LYMPHOCYTES # (AUTO) 1.1 K/uL (2.5-16.5); LYMPHOCYTES % (AUTO) 25.7 % (20.5-51.1); MEAN CORPUSCULAR HEMOGLOBIN 30 pg (27-31); MEAN CORPUSCULAR HGB CONC 34 g/dL (33-37); MEAN CORPUSCULAR VOLUME 87.8 fL (80-94); MONOCYTES # (AUTO) 0.4 K/uL (0.8-1.0); MONOCYTES % (AUTO) 9.3 % (1.7-9.3); NEUTROPHILS # (AUTO) 2.7 K/uL (1.8-7.7); NEUTROPHILS % (AUTO) 63.4 % (42.2-75.2); PLATELET COUNT (AUTO) 185 K/uL (140-450); RED BLOOD CELL COUNT(AUTO) 3.71 MIL/uL (4.20-5.40); RED CELL DISTRIBUTION WIDTH 14.9 % (11.6-13.7); WHITE BLOOD COUNT (AUTO) 4.3 K/uL (4.8-10.8)
[2022-10-24] MEDS: QUEtiapine FUMARATE 100 MG TAB PO SCH (21:33)
[2022-10-24] MEDS: MUPIROCIN CA NASAL 2% 1GM TUBE NS SCH (21:49)
[2022-10-24] MEDS: CHLORHEXADINE GLUC 2% CLOTH TP SCH (21:50)
[2022-10-25] VITALS (10 sets, daily range): BP systolic 106–180; BP diastolic 70–115; PULSE 102–114; RESP 18–19; TEMP 96.4–98.7; O2SAT 94–99
[2022-10-25] MEDS: metroNIDAZOLE 500 MG/NS PREMIX 100 ML IV SCH ×3 (05:38→20:06)
[2022-10-25 06:09] LABS: BASOPHILS % (AUTO) 0.8 % (0.0-2.0); EOSINOPHILS % (AUTO) 1.4 % (0.0-4.0); HEMATOCRIT 30.2 % (36-48); HEMOGLOBIN 10.3 g/dL (12.0-16.0); LYMPHOCYTES # (AUTO) 1.3 K/uL (2.5-16.5); LYMPHOCYTES % (AUTO) 43.3 % (20.5-51.1); MEAN CORPUSCULAR HEMOGLOBIN 30 pg (27-31); MEAN CORPUSCULAR HGB CONC 34 g/dL (33-37); MEAN CORPUSCULAR VOLUME 87.1 fL (80-94); MONOCYTES # (AUTO) 0.3 K/uL (0.8-1.0); MONOCYTES % (AUTO) 10.6 % (1.7-9.3); NEUTROPHILS # (AUTO) 1.3 K/uL (1.8-7.7); NEUTROPHILS % (AUTO) 43.9 % (42.2-75.2); PLATELET COUNT (AUTO) 163 K/uL (140-450); RED BLOOD CELL COUNT(AUTO) 3.47 MIL/uL (4.20-5.40); WHITE BLOOD COUNT (AUTO) 2.9 K/uL (4.8-10.8)
[2022-10-25 06:18] LABS: ANION GAP 10.2 (8-16); CARBON DIOXIDE 24.1 mmol/L (21-32); CREATININE 3.3 mg/dL (0.6-1.3); POTASSIUM 5.3 mmol/L (3.5-5.1)
[2022-10-25 06:21] LABS: MAGNESIUM 1.7 mg/dL (1.8-2.4); PHOSPHORUS 5.6 mg/dL (2.5-4.9)
[2022-10-25] MEDS: BLOOD GLUCOSE MONITORING 1 DEV DEV FS SCH ×4 (06:29→20:05)
[2022-10-25] MEDS: INSULIN LISPRO SLIDING SCALE 100 UNITS/ML VIAL SUBQ PRN ×3 (06:39→16:57)
[2022-10-25 07:07] LABS: HEPATITIS A ANTIBODY IGM Negative (Negative); HEPATITIS B CORE AB TOTAL Negative (Negative); HEPATITIS B CORE, IGM Negative (Negative); HEPATITIS B SURFACE ANTIBODY Reactive (.); HEPATITIS B SURFACE ANTIGEN Negative (Negative)
[2022-10-25] MEDS: LACTULOSE 20 GM/30 ML UDC PO SCH ×2 (08:09→20:06)
[2022-10-25] MEDS: DOCUSATE 100 MG/10 ML UDC PO SCH ×2 (08:09→20:06)
[2022-10-25] MEDS: GABAPENTIN 100 MG CAP PO SCH (08:09)
[2022-10-25] MEDS: BENAZEPRIL 5 MG TAB PO SCH (08:23)
[2022-10-25] MEDS: PANTOPRAZOLE 40 MG INJ VIAL IVP SCH (10:41)
[2022-10-25] MEDS: FUROSEMIDE 40 MG/4 ML VIAL IVP SCH ×2 (10:41→18:46)
[2022-10-25] MEDS: SODIUM FERRIC GLUCONATE 125 MG in NACL 0.9% 100 ML IV SCH (10:44)
[2022-10-25] MEDS: NACL 0.9% 1,000 ML IV SCH ×2 (14:15→23:27)
[2022-10-25] MEDS: HYDROcodone/APAP 7.5/325 MG 1 TAB PO PRN (17:07)
[2022-10-25] MEDS: hydrALAZINE 20 MG/ML VIAL IVP PRN (18:53)
[2022-10-25] MEDS: MUPIROCIN CA NASAL 2% 1GM TUBE NS SCH (19:19)
[2022-10-25] MEDS: CHLORHEXADINE GLUC 2% CLOTH TP SCH (19:19)
[2022-10-25] MEDS: MAG SULF 2000 MG/WATER PREMIX 50 ML IV PRN (19:20)
[2022-10-25] MEDS: QUEtiapine FUMARATE 100 MG TAB PO SCH (20:06)
[2022-10-26] VITALS: BP 96/64; PULSE 102; RESP 19; TEMP 97.8; O2SAT 93
[2022-10-26 03:55] VITALS: PULSE 102
[2022-10-26 04:00] VITALS: BP 132/72; PULSE 103; RESP 18; TEMP 97.2; O2SAT 97
[2022-10-26] MEDS: metroNIDAZOLE 500 MG/NS PREMIX 100 ML IV SCH (04:42)
[2022-10-26] MEDS: BLOOD GLUCOSE MONITORING 1 DEV DEV FS SCH (06:35)
[2022-10-26 06:48] LABS: MAGNESIUM 1.9 mg/dL (1.8-2.4); PHOSPHORUS 5.3 mg/dL (2.5-4.9)
[2022-10-26 06:49] LABS: ANION GAP 13.5 (8-16); CALCIUM 7.1 mg/dL (8.5-10.1); CARBON DIOXIDE 19.8 mmol/L (21-32); CREATININE 3.2 mg/dL (0.6-1.3); POTASSIUM 5.3 mmol/L (3.5-5.1)
[2022-10-26 07:27] LABS: BASOPHILS % (AUTO) 1.2 % (0.0-2.0); EOSINOPHILS # (AUTO) 0.1 K/uL (0-0.4); EOSINOPHILS % (AUTO) 2.4 % (0.0-4.0); HEMATOCRIT 30.6 % (36-48); HEMOGLOBIN 10.4 g/dL (12.0-16.0); LYMPHOCYTES # (AUTO) 1.3 K/uL (2.5-16.5); LYMPHOCYTES % (AUTO) 41.9 % (20.5-51.1); MEAN CORPUSCULAR HEMOGLOBIN 30 pg (27-31); MEAN CORPUSCULAR HGB CONC 34 g/dL (33-37); MEAN CORPUSCULAR VOLUME 87.6 fL (80-94); MONOCYTES # (AUTO) 0.3 K/uL (0.8-1.0); MONOCYTES % (AUTO) 9.2 % (1.7-9.3); NEUTROPHILS # (AUTO) 1.4 K/uL (1.8-7.7); NEUTROPHILS % (AUTO) 45.3 % (42.2-75.2); PLATELET COUNT (AUTO) 176 K/uL (140-450); RED BLOOD CELL COUNT(AUTO) 3.49 MIL/uL (4.20-5.40); RED CELL DISTRIBUTION WIDTH 15.2 % (11.6-13.7); WHITE BLOOD COUNT (AUTO) 3.1 K/uL (4.8-10.8)
[2022-10-26 07:51] VITALS: RESP 20; O2SAT 99
[2022-10-26 08:00] VITALS: BP 147/85; PULSE 107; PULSE 108; RESP 18; TEMP 97; O2SAT 98
[2022-10-26] MEDS: PANTOPRAZOLE 40 MG INJ VIAL IVP SCH (08:46)
[2022-10-26] MEDS: FUROSEMIDE 40 MG/4 ML VIAL IVP SCH (08:46)
[2022-10-26] MEDS: BENAZEPRIL 5 MG TAB PO SCH (08:51)
[2022-10-26] MEDS: LACTULOSE 20 GM/30 ML UDC PO SCH (08:51)
[2022-10-26] MEDS: GABAPENTIN 100 MG CAP PO SCH (08:52)
[2022-10-26] MEDS: DOCUSATE 100 MG/10 ML UDC PO SCH (08:52)
[2022-10-26] MEDS ORDERED: METR-520 PO (10:20)
[2022-10-26] MEDS ORDERED: FURO-570 PO (10:20)
[2022-10-26] MEDS: SODIUM FERRIC GLUCONATE 125 MG in NACL 0.9% 100 ML IV SCH (10:58)
[2022-10-26 11:22] VITALS: BP 147/85; PULSE 108; RESP 18; TEMP 97
[2022-10-26 21:22] LABS: HEPATITIS A ANTIBODY TOTAL POSITIVE (Negative)
== END 2022-10-26 12:10 | disposition home health service (06) | DRG 720 ==
LOC: MED 11:19 → MTU 15:24
PROC: 30233N1 Transfusion of Nonautologous Red Blood Cells into Peripheral Vein, Percutaneous Approach (ICD-10-PCS; principal; 2022-10-24)
DX: A41.9 Sepsis, unspecified organism (principal); D61.818 Other pancytopenia; E43 Unspecified severe protein-calorie malnutrition; N17.9 Acute kidney failure, unspecified; E11.22 Type 2 diabetes mellitus with diabetic chronic kidney disease; I13.0 Hypertensive heart and chronic kidney disease with heart failure and stage 1 through stage 4 chronic kidney disease, or unspecified chronic kidney disease; I50.9 Heart failure, unspecified; I69.354 Hemiplegia and hemiparesis following cerebral infarction affecting left non-dominant side; D62 Acute posthemorrhagic anemia; F11.90 Opioid use, unspecified, uncomplicated; N39.0 Urinary tract infection, site not specified; J45.909 Unspecified asthma, uncomplicated; K21.9 Gastro-esophageal reflux disease without esophagitis; B19.20 Unspecified viral hepatitis C without hepatic coma; E03.9 Hypothyroidism, unspecified; N18.4 Chronic kidney disease, stage 4 (severe); Z79.899 Other long term (current) drug therapy; Z68.38 Body mass index [BMI] 38.0-38.9, adult
CPT/HCPCS: 36415; 36430; 71045; 76705; 76770; 80048; 80053; 80305; 81001; 82140; 82150; 82247; 82248; 82272; 82728; 82948; 83010; 83036; 83540; 83605; 83615; 83690; 83735; 83880; 84100; 84439; 84443; 84484; 85025; 85045; 85610; 85730; 86704; 86706; 86708; 86709; 86803; 86886; 86900; 86901; 86920; 87040; 87081; 87086; 87340; 93970; 96374; 99285; C9113; J0360; J0610; J0696; J1815; J1940; J2916; J3475; J3490; J7060; P9016; Q0092

== ENCOUNTER 2022-12-10 13:27 | Inpatient (IN) | payer BC ==
[~2022-12-10] VITALS: Ht 149.9 cm; Wt 52.6 kg
[~2022-12-10 13:27] MED LIST changes: +FURO-570 PO; +METR-520 PO
[2022-12-10 14:03] VITALS: BP 102/68; PULSE 77; RESP 20; TEMP 97.8; O2SAT 100
[2022-12-10 16:12] LABS: BASOPHILS # (AUTO) 0.1 K/uL (0.00-0.22); BASOPHILS % (AUTO) 1.4 % (0.0-2.0); EOSINOPHILS # (AUTO) 0.1 K/uL (0-0.4); EOSINOPHILS % (AUTO) 1.3 % (0.0-4.0); HEMATOCRIT 27.4 % (36-48); HEMOGLOBIN 9.4 g/dL (12.0-16.0); LYMPHOCYTES # (AUTO) 1.2 K/uL (2.5-16.5); LYMPHOCYTES % (AUTO) 17.8 % (20.5-51.1); MEAN CORPUSCULAR HEMOGLOBIN 31 pg (27-31); MEAN CORPUSCULAR HGB CONC 34 g/dL (33-37); MEAN CORPUSCULAR VOLUME 90.1 fL (80-94); MONOCYTES # (AUTO) 0.5 K/uL (0.8-1.0); MONOCYTES % (AUTO) 7.5 % (1.7-9.3); NEUTROPHILS # (AUTO) 4.9 K/uL (1.8-7.7); PLATELET COUNT (AUTO) 264 K/uL (140-450); RED BLOOD CELL COUNT(AUTO) 3.04 MIL/uL (4.20-5.40); RED CELL DISTRIBUTION WIDTH 18.2 % (11.6-13.7); WHITE BLOOD COUNT (AUTO) 6.8 K/uL (4.8-10.8)
[2022-12-10 16:22] LABS: INR 0.97 (0.8-1.2); PARTIAL THROMBOPLASTIN TIME 25.5 secs (22-35.6); PROTHROMBIN TIME 10.2 secs (10.8-13.4)
[2022-12-10 16:23] LABS: ALBUMIN 3.3 g/dL (3.4-5.0); ANION GAP 17.7 (8-16); CARBON DIOXIDE 25.6 mmol/L (21-32); CREATININE 2.8 mg/dL (0.6-1.3); POTASSIUM 3.3 mmol/L (3.5-5.1); TOTAL BILIRUBIN 0.4 mg/dL (0.0-1.0); TOTAL PROTEIN, SERUM 7.6 g/dL (6.4-8.2)
[2022-12-10] MEDS ORDERED: cefTRIAXone 1,000 MG VIAL ONE (17:54)
[2022-12-10 18:06] LABS: LACTIC ACID 0.7 mmol/L (0.4-2.0)
[2022-12-10] MEDS ORDERED: ONDANSETRON 4 MG/2 ML VIAL IVP PRN (19:10)
[2022-12-10] MEDS ORDERED: ALBUTEROL 0.083% 2.5 MG/3 ML NEBU INH PRN (19:10)
[2022-12-10] MEDS ORDERED: HYDROcodone/APAP 5/325 MG 1 TAB TAB PO PRN (19:10)
[2022-12-10] MEDS ORDERED: MORPHINE SULFATE 2 MG/ML SYR IVP PRN (19:10)
[2022-12-10 20:03] VITALS: O2SAT 94
[2022-12-10 21:00] VITALS: PULSE 78; RESP 18; O2SAT 98
[2022-12-10] MEDS ORDERED: DEXTROSE 50% 50 ML SYR IVP PRN (22:10)
[2022-12-10] MEDS ORDERED: INSULIN LISPRO SLIDING SCALE 100 UNITS/ML VIAL SUBQ PRN (22:10)
[2022-12-10 22:58] VITALS: O2SAT 98
[2022-12-10] MEDS ORDERED: QUEtiapine FUMARATE 25 MG TAB PO SCH (23:00)
[2022-12-11] VITALS (8 sets, daily range): BP systolic 180–202; BP diastolic 62–108; PULSE 67–90; RESP 18–20; TEMP 97.6–97.8; O2SAT 97–100
[2022-12-11 06:44] LABS: BASOPHILS % (AUTO) 0.8 % (0.0-2.0); EOSINOPHILS # (AUTO) 0.1 K/uL (0-0.4); EOSINOPHILS % (AUTO) 1.8 % (0.0-4.0); HEMOGLOBIN 9.6 g/dL (12.0-16.0); LYMPHOCYTES % (AUTO) 23.3 % (20.5-51.1); MEAN CORPUSCULAR HEMOGLOBIN 31 pg (27-31); MEAN CORPUSCULAR HGB CONC 34 g/dL (33-37); MEAN CORPUSCULAR VOLUME 89.7 fL (80-94); MONOCYTES # (AUTO) 0.3 K/uL (0.8-1.0); MONOCYTES % (AUTO) 8.1 % (1.7-9.3); NEUTROPHILS # (AUTO) 2.8 K/uL (1.8-7.7); PLATELET COUNT (AUTO) 219 K/uL (140-450); RED BLOOD CELL COUNT(AUTO) 3.12 MIL/uL (4.20-5.40); RED CELL DISTRIBUTION WIDTH 17.7 % (11.6-13.7); WHITE BLOOD COUNT (AUTO) 4.2 K/uL (4.8-10.8)
[2022-12-11 06:54] LABS: ANION GAP 19.7 (8-16); CALCIUM 7.3 mg/dL (8.5-10.1); CARBON DIOXIDE 21.5 mmol/L (21-32); CREATININE 3.2 mg/dL (0.6-1.3); POTASSIUM 3.2 mmol/L (3.5-5.1)
[2022-12-11] MEDS: BLOOD GLUCOSE MONITORING 1 DEV DEV FS SCH ×3 (07:44→16:30)
[2022-12-11] MEDS ORDERED: hydrALAZINE 25 MG TAB PO PRN (10:15)
[2022-12-11] MEDS ORDERED: lisinopriL 20 MG TAB PO SCH (10:30)
[2022-12-11] MEDS ORDERED: LANTUS SC (15:05)
[2022-12-11] MEDS ORDERED: INSU100I28 SQ (15:05)
[2022-12-11] MEDS ORDERED: levoFLOXacin 750 MG TAB PO SCH (15:07)
[2022-12-11] MEDS ORDERED: LEVO250T89 PO (15:07)
[2022-12-11] MEDS ORDERED: ACET-9527 PO (15:14)
[2022-12-11] MEDS ORDERED: hydrALAZINE 20 MG/ML VIAL IVP PRN (17:40)
[2022-12-11] MEDS ORDERED: CLONIDINE HYDROCHLORIDE 0.1 MG TAB PO SCH (17:41)
== END 2022-12-11 20:15 | disposition home or self-care (01) | DRG 135 ==
LOC: MED 13:27 → MTU 19:07
PROVIDERS: ADMIT Internal Medicine; ATTEND Internal Medicine
PROC: 5A1D70Z Performance of Urinary Filtration, Intermittent, Less than 6 Hours Per Day (ICD-10-PCS; principal; 2022-12-11)
DX: S22.41XA Multiple fractures of ribs, right side, initial encounter for closed fracture (principal); J96.01 Acute respiratory failure with hypoxia; I12.0 Hypertensive chronic kidney disease with stage 5 chronic kidney disease or end stage renal disease; J18.9 Pneumonia, unspecified organism; E44.1 Mild protein-calorie malnutrition; N18.6 End stage renal disease; F25.1 Schizoaffective disorder, depressive type; E11.22 Type 2 diabetes mellitus with diabetic chronic kidney disease; E83.51 Hypocalcemia; K74.60 Unspecified cirrhosis of liver; W01.0XXA Fall on same level from slipping, tripping and stumbling without subsequent striking against object, initial encounter; K21.9 Gastro-esophageal reflux disease without esophagitis; E04.1 Nontoxic single thyroid nodule; Z86.73 Personal history of transient ischemic attack (TIA), and cerebral infarction without residual deficits; Z99.2 Dependence on renal dialysis; Y93.89 Activity, other specified; Y92.89 Other specified places as the place of occurrence of the external cause; Y99.8 Other external cause status; Z68.23 Body mass index [BMI] 23.0-23.9, adult
CPT/HCPCS: 36415; 70450; 71101; 71250; 72125; 76536; 80048; 80053; 82948; 83605; 85025; 85610; 85730; 87040; 87081; 96365; 99285; J0360; J0696; J1644; J1815; J2270; Q0092

== ENCOUNTER 2022-12-31 11:12 | Emergency (ER) | payer BC ==
[~2022-12-31] VITALS: Ht 149.9 cm; Wt 52.2 kg
[~2022-12-31 11:12] MED LIST changes: +ACET-9527 PO; -AMOX-999 PO; +LEVO250T89 PO; -METR-520 PO; -NAPR-54 PO; -PRED20TA5 PO; -QUET300T1 PO
[2022-12-31 11:57] VITALS: BP 123/78; PULSE 88; RESP 18; TEMP 98; O2SAT 97
[2022-12-31 13:58] VITALS: BP 123/78; PULSE 88; RESP 18; TEMP 98; O2SAT 97
[2022-12-31] MEDS ORDERED: FAMOTIDINE 20 MG TAB PO ONE (14:05)
[2022-12-31] MEDS ORDERED: predniSONE 20 MG TAB PO ONE (14:05)
[2022-12-31] MEDS ORDERED: diphenhydrAMINE 12.5 MG/5 ML UDC PO ONE (14:05)
[2022-12-31] MEDS ORDERED: DIPH25TA53 PO (14:06)
[2022-12-31] MEDS ORDERED: FAMO-90 PO (14:06)
[2022-12-31] MEDS ORDERED: EPIN1KIT31 IM (14:06)
[2022-12-31] MEDS ORDERED: PRED20TA5 PO (14:06)
== END 2022-12-31 14:27 | disposition home or self-care (01) ==
LOC: MED 11:12
DX: K14.8 Other diseases of tongue (principal); T36.8X5A Adverse effect of other systemic antibiotics, initial encounter; T78.3XXA Angioneurotic edema, initial encounter; J45.909 Unspecified asthma, uncomplicated; E11.9 Type 2 diabetes mellitus without complications; K21.9 Gastro-esophageal reflux disease without esophagitis; I10 Essential (primary) hypertension; Z86.73 Personal history of transient ischemic attack (TIA), and cerebral infarction without residual deficits; Z87.448 Personal history of other diseases of urinary system; Z98.890 Other specified postprocedural states; Z79.899 Other long term (current) drug therapy; Z79.2 Long term (current) use of antibiotics; Z79.4 Long term (current) use of insulin; Y92.89 Other specified places as the place of occurrence of the external cause
CPT/HCPCS: 99284; J7512; Q0163

== ENCOUNTER 2023-02-21 10:59 | Inpatient (IN) | payer BC ==
[~2023-02-21] VITALS: Ht 149.9 cm; Wt 52.6 kg
[~2023-02-21 10:59] MED LIST changes: +DIPH25TA53 PO; +EPIN1KIT31 IM; +FAMO-90 PO; +PRED20TA5 PO
[2023-02-21 11:10] VITALS: BP 148/89; PULSE 97; RESP 20; TEMP 98; O2SAT 98
[2023-02-21 12:02] LABS: BASOPHILS % (AUTO) 0.6 % (0.0-2.0); EOSINOPHILS % (AUTO) 0.9 % (0.0-4.0); HEMATOCRIT 33.2 % (36-48); HEMOGLOBIN 11.4 g/dL (12.0-16.0); LYMPHOCYTES # (AUTO) 0.6 K/uL (2.5-16.5); LYMPHOCYTES % (AUTO) 10.5 % (20.5-51.1); MEAN CORPUSCULAR HEMOGLOBIN 32 pg (27-31); MEAN CORPUSCULAR HGB CONC 34 g/dL (33-37); MONOCYTES # (AUTO) 0.3 K/uL (0.8-1.0); MONOCYTES % (AUTO) 4.7 % (1.7-9.3); NEUTROPHILS # (AUTO) 4.4 K/uL (1.8-7.7); NEUTROPHILS % (AUTO) 83.3 % (42.2-75.2); PLATELET COUNT (AUTO) 154 K/uL (140-450); RED BLOOD CELL COUNT(AUTO) 3.61 MIL/uL (4.20-5.40); RED CELL DISTRIBUTION WIDTH 14.6 % (11.6-13.7); WHITE BLOOD COUNT (AUTO) 5.3 K/uL (4.8-10.8)
[2023-02-21 12:27] LABS: ANION GAP 12.8 (8-16); CALCIUM 7.7 mg/dL (8.5-10.1); CARBON DIOXIDE 26.9 mmol/L (21-32); CREATININE 3.2 mg/dL (0.6-1.3); POTASSIUM 4.7 mmol/L (3.5-5.1)
[2023-02-21 12:30] LABS: ALBUMIN 2.2 g/dL (3.4-5.0); BILIRUBIN,DIRECT 0.1 mg/dL (0.0-0.3); TOTAL BILIRUBIN 0.3 mg/dL (0.0-1.0); TOTAL PROTEIN, SERUM 7.3 g/dL (6.4-8.2)
[2023-02-21] MEDS ORDERED: LACTATED RINGERS 500 ML IV ONE (12:55)
[2023-02-21] MEDS ORDERED: INSULIN REGULAR, HUMAN 100 UNIT in NACL 0.9% 100 ML IV SCH ×6 (13:40→23:00)
[2023-02-21 14:07] LABS: APPEARANCE,URINE CLEAR (CLEAR); BILIRUBIN,URINE NEGATIVE (NEGATIVE); BLOOD, URINE NEGATIVE (NEGATIVE); COLOR,URINE YELLOW (YELLOW); LEUKOCYTE ESTERASE ,URINE NEGATIVE (NEGATIVE); NITRITE, URINE NEGATIVE (NEGATIVE); PH,URINE 7.5 (5.0-9.0); PROTEIN,URINE 3+ (NEGATIVE); UGLUCOSE 3+ (NEGATIVE); UROBILINOGEN,URINE 0.2 EU/dL (0.2 - 1)
[2023-02-21] MEDS ORDERED: DEXTROSE 50% 50 ML SYR IVP PRN (14:35)
[2023-02-21] MEDS: BLOOD GLUCOSE MONITORING 1 DEV DEV FS SCH ×8 (14:35→23:58)
[2023-02-21 15:21] LABS: FREE T4 (FREE THYROXINE) 0.31 ng/dL (0.76-1.46); THYROID STIMULATING HORMONE 3.46 uIU/mL (0.34-3.74)
[2023-02-21] MEDS: DEXT 5% / NACL 0.45% 1,000 ML IV SCH (16:49)
[2023-02-21 17:31] LABS: ANION GAP 17.1 (8-16); CALCIUM 7.8 mg/dL (8.5-10.1); CARBON DIOXIDE 22.3 mmol/L (21-32); CREATININE 3.1 mg/dL (0.6-1.3); POTASSIUM 4.4 mmol/L (3.5-5.1)
[2023-02-21 17:51] LABS: MAGNESIUM 1.9 mg/dL (1.8-2.4); PHOSPHORUS 6.8 mg/dL (2.5-4.9)
[2023-02-21 20:00] VITALS: BP 131/72; PULSE 65; RESP 63; TEMP 98.5; O2SAT 95
[2023-02-21 21:00] VITALS: BP 99/59; PULSE 64; RESP 52; O2SAT 95
[2023-02-21] MEDS ORDERED: QUEtiapine FUMARATE 100 MG TAB PO SCH (21:00)
[2023-02-21 21:54] LABS: ANION GAP 15.4 (8-16); CALCIUM 7.6 mg/dL (8.5-10.1); CARBON DIOXIDE 22.4 mmol/L (21-32); CREATININE 3.4 mg/dL (0.6-1.3); POTASSIUM 3.8 mmol/L (3.5-5.1)
[2023-02-21] MEDS: FAMOTIDINE 20 MG TAB PO SCH (21:56)
[2023-02-21 22:00] VITALS: BP 112/68; PULSE 64; RESP 62; O2SAT 95
[2023-02-21 22:22] LABS: MAGNESIUM 1.8 mg/dL (1.8-2.4); PHOSPHORUS 6.4 mg/dL (2.5-4.9)
[2023-02-21 23:00] VITALS: BP 115/68; PULSE 62; RESP 44; O2SAT 93
[2023-02-21] MEDS: NACL 0.9% 1,000 ML IV SCH (23:00)
[2023-02-21] MEDS ORDERED: INSULIN LISPRO SLIDING SCALE 100 UNITS/ML VIAL SUBQ PRN (23:00)
[2023-02-22] VITALS (14 sets, daily range): BP systolic 110–212; BP diastolic 67–133; PULSE 70–107; RESP 14–42; TEMP 97.2–98.1; O2SAT 92–100
[2023-02-22] MEDS: BLOOD GLUCOSE MONITORING 1 DEV DEV FS SCH ×8 (01:08→17:10)
[2023-02-22 01:33] LABS: ANION GAP 15.7 (8-16); CALCIUM 7.7 mg/dL (8.5-10.1); CARBON DIOXIDE 22.6 mmol/L (21-32); CREATININE 3.3 mg/dL (0.6-1.3); POTASSIUM 3.3 mmol/L (3.5-5.1)
[2023-02-22 01:36] LABS: MAGNESIUM 1.7 mg/dL (1.8-2.4)
[2023-02-22] MEDS ORDERED: KCL 20 MEQ IN 100 mL PREMIX 200 ML IV ONE ×2 (03:15→03:23)
[2023-02-22] MEDS ORDERED: MAG SULF 2000 MG/WATER PREMIX 50 ML IV PRN (03:15)
[2023-02-22] MEDS ORDERED: KCL 20 MEQ IN 100 mL PREMIX 200 ML IV PRN (03:15)
[2023-02-22] MEDS ORDERED: MORPHINE SULFATE 2 MG/ML SYR IVP PRN (03:15)
[2023-02-22] MEDS: DEXT 5% / NACL 0.45% 1,000 ML IV SCH (03:16)
[2023-02-22] MEDS ORDERED: MAG SULF 2000 MG/WATER PREMIX 50 ML IV ONE (03:24)
[2023-02-22] MEDS: NACL 0.9% 1,000 ML IV SCH (04:00)
[2023-02-22 06:03] LABS: MAGNESIUM 1.9 mg/dL (1.8-2.4); PHOSPHORUS 5.9 mg/dL (2.5-4.9)
[2023-02-22 06:10] LABS: ANION GAP 16.2 (8-16); CALCIUM 8.1 mg/dL (8.5-10.1); CARBON DIOXIDE 22.2 mmol/L (21-32); CREATININE 3.1 mg/dL (0.6-1.3); POTASSIUM 3.4 mmol/L (3.5-5.1)
[2023-02-22] MEDS ORDERED: BENAZEPRIL 5 MG TAB PO SCH (09:00)
[2023-02-22] MEDS ORDERED: GABAPENTIN 100 MG CAP PO SCH (09:00)
[2023-02-22] MEDS ORDERED: FUROSEMIDE 20 MG TAB PO SCH (09:00)
[2023-02-22] MEDS ORDERED: INSULIN LISPRO SLIDING SCALE 100 UNITS/ML VIAL SUBQ PRN (09:20)
[2023-02-22] MEDS ORDERED: DEXTROSE 50% 50 ML SYR IVP PRN (09:20)
[2023-02-22] MEDS ORDERED: INSULIN LANTUS 100 UNITS/ML 10 ML VIAL SUBQ SCH (09:24)
[2023-02-22 09:34] LABS: HEMOGLOBIN A1C 9.6 % (4.8-5.6); T4 (THYROXINE) 1.6 ug/dL (4.5 - 12.0)
[2023-02-22] MEDS: FAMOTIDINE 20 MG TAB PO SCH (09:49)
[2023-02-22 15:31] LABS: BASOPHILS # (AUTO) 0.1 K/uL (0.00-0.22); BASOPHILS % (AUTO) 0.5 % (0.0-2.0); EOSINOPHILS % (AUTO) 0.3 % (0.0-4.0); HEMATOCRIT 34.3 % (36-48); HEMOGLOBIN 12.1 g/dL (12.0-16.0); LYMPHOCYTES # (AUTO) 0.8 K/uL (2.5-16.5); LYMPHOCYTES % (AUTO) 5.7 % (20.5-51.1); MEAN CORPUSCULAR HEMOGLOBIN 31 pg (27-31); MEAN CORPUSCULAR HGB CONC 35 g/dL (33-37); MEAN CORPUSCULAR VOLUME 88.5 fL (80-94); MONOCYTES # (AUTO) 0.6 K/uL (0.8-1.0); MONOCYTES % (AUTO) 4.1 % (1.7-9.3); NEUTROPHILS # (AUTO) 12.3 K/uL (1.8-7.7); NEUTROPHILS % (AUTO) 89.4 % (42.2-75.2); PLATELET COUNT (AUTO) 173 K/uL (140-450); RED BLOOD CELL COUNT(AUTO) 3.87 MIL/uL (4.20-5.40); RED CELL DISTRIBUTION WIDTH 14.4 % (11.6-13.7); WHITE BLOOD COUNT (AUTO) 13.7 K/uL (4.8-10.8)
[2023-02-22] MEDS ORDERED: hydrALAZINE 20 MG/ML VIAL ONE (16:37)
[2023-02-22] MEDS ORDERED: hydrALAZINE 20 MG/ML VIAL IVP SCH (16:40)
[2023-02-22] MEDS ORDERED: hydrALAZINE 20 MG/ML VIAL IVP PRN (16:45)
[2023-02-22] MEDS ORDERED: amLODIPine 5 MG TAB PO SCH (16:45)
[2023-02-22] MEDS ORDERED: ZOLPIDEM 5 MG TAB PO SCH (21:00)
[2023-02-23 15:10] LABS: HEPATITIS A ANTIBODY IGM Negative (Negative); HEPATITIS B CORE AB TOTAL Negative (Negative); HEPATITIS B CORE, IGM Negative (Negative); HEPATITIS B SURFACE ANTIBODY Reactive (.); HEPATITIS B SURFACE ANTIGEN Negative (Negative)
[2023-02-23 19:27] LABS: HEPATITIS A ANTIBODY TOTAL Positive (Negative)
[2023-02-23 19:28] LABS: HEPATITIS C VIRUS ANTIBODY Reactive s/co rat (0.00 - 0.9)
== END 2023-02-22 17:32 | disposition home or self-care (01) | DRG 420 ==
LOC: MED 10:59 → MMU 14:37 → MIC 19:14
PROVIDERS: ADMIT Student in an Organized Health Care Education/Training Program; ATTEND Student in an Organized Health Care Education/Training Program
PROC: 5A1D70Z Performance of Urinary Filtration, Intermittent, Less than 6 Hours Per Day (ICD-10-PCS; principal; 2023-02-22)
DX: E11.00 Type 2 diabetes mellitus with hyperosmolarity without nonketotic hyperglycemic-hyperosmolar coma (NKHHC) (principal); I12.0 Hypertensive chronic kidney disease with stage 5 chronic kidney disease or end stage renal disease; N18.6 End stage renal disease; E44.1 Mild protein-calorie malnutrition; R18.8 Other ascites; E11.22 Type 2 diabetes mellitus with diabetic chronic kidney disease; D63.1 Anemia in chronic kidney disease; I69.354 Hemiplegia and hemiparesis following cerebral infarction affecting left non-dominant side; K74.60 Unspecified cirrhosis of liver; E87.1 Hypo-osmolality and hyponatremia; E87.6 Hypokalemia; E11.10 Type 2 diabetes mellitus with ketoacidosis without coma; K21.9 Gastro-esophageal reflux disease without esophagitis; Z68.23 Body mass index [BMI] 23.0-23.9, adult
CPT/HCPCS: 36415; 71045; 80048; 80076; 81003; 82009; 82550; 82947; 82948; 83036; 83690; 83735; 84100; 84436; 84439; 84443; 84479; 84484; 85025; 86704; 86706; 86708; 86709; 86803; 87040; 87081; 87340; 92526; 93005; 96360; 99291; J0360; J1644; J1815; J2270; J3475; J3480

== ENCOUNTER 2023-06-02 16:57 | Emergency (ER) | payer BC ==
[~2023-06-02] VITALS: Ht 149.9 cm; Wt 54.4 kg
[2023-06-02 17:22] VITALS: BP 145/84; PULSE 77; RESP 19; TEMP 98.4; O2SAT 95
[2023-06-02] MEDS: KETOROLAC 60 MG/2 ML VIAL IM ONE (17:47)
[2023-06-02] MEDS ORDERED: IBUP-2213 PO (17:47)
[2023-06-02 17:54] VITALS: BP 176/93; PULSE 90; RESP 19; TEMP 98.4; O2SAT 95
== END 2023-06-02 17:54 | disposition home or self-care (01) ==
LOC: MED 16:57
DX: S91.104A Unspecified open wound of right lesser toe(s) without damage to nail, initial encounter (principal); J45.909 Unspecified asthma, uncomplicated; E11.9 Type 2 diabetes mellitus without complications; K21.9 Gastro-esophageal reflux disease without esophagitis; I10 Essential (primary) hypertension; Z86.69 Personal history of other diseases of the nervous system and sense organs; Z87.448 Personal history of other diseases of urinary system; Z98.890 Other specified postprocedural states; Z79.899 Other long term (current) drug therapy; Z79.4 Long term (current) use of insulin; W18.39XA Other fall on same level, initial encounter; Y92.89 Other specified places as the place of occurrence of the external cause; Y93.89 Activity, other specified; Y99.8 Other external cause status
CPT/HCPCS: 96372; 99283; J1885

== ENCOUNTER 2023-07-05 10:57 | Emergency (ER) | payer BC ==
[~2023-07-05] VITALS: Ht 149.9 cm; Wt 49.9 kg
[~2023-07-05 10:57] MED LIST changes: +IBUP-2213 PO; -LACT-103 PO; +LACT-191 PO
[2023-07-05 11:05] VITALS: BP 181/99; PULSE 94; RESP 20; TEMP 97.4; O2SAT 99
[2023-07-05 11:57] LABS: BASOPHILS % (AUTO) 0.9 % (0.0-2.0); EOSINOPHILS # (AUTO) 0.1 K/uL (0-0.4); EOSINOPHILS % (AUTO) 2.2 % (0.0-4.0); HEMATOCRIT 32.4 % (36-48); HEMOGLOBIN 10.8 g/dL (12.0-16.0); LYMPHOCYTES # (AUTO) 0.7 K/uL (2.5-16.5); LYMPHOCYTES % (AUTO) 21.7 % (20.5-51.1); MEAN CORPUSCULAR HEMOGLOBIN 27 pg (27-31); MEAN CORPUSCULAR HGB CONC 33 g/dL (33-37); MEAN CORPUSCULAR VOLUME 82.3 fL (80-94); MONOCYTES # (AUTO) 0.3 K/uL (0.8-1.0); NEUTROPHILS # (AUTO) 2.1 K/uL (1.8-7.7); NEUTROPHILS % (AUTO) 66.2 % (42.2-75.2); PLATELET COUNT (AUTO) 138 K/uL (140-450); RED BLOOD CELL COUNT(AUTO) 3.93 MIL/uL (4.20-5.40); RED CELL DISTRIBUTION WIDTH 15.9 % (11.6-13.7); WHITE BLOOD COUNT (AUTO) 3.2 K/uL (4.8-10.8)
[2023-07-05 12:07] VITALS: PULSE 88; RESP 14; O2SAT 96
[2023-07-05 12:18] LABS: FLU A ANTIGEN negative (NEGATIVE); FLU B ANTIGEN negative (NEGATIVE)
[2023-07-05 12:19] LABS: ALBUMIN 2.3 g/dL (3.4-5.0); CALCIUM 7.7 mg/dL (8.5-10.1); CARBON DIOXIDE 27.9 mmol/L (21-32); CREATININE 2.8 mg/dL (0.6-1.3); POTASSIUM 3.9 mmol/L (3.5-5.1); TOTAL BILIRUBIN 0.3 mg/dL (0.0-1.0)
[2023-07-05] MEDS: ALBUTEROL SULFATE/IPRATROPIU 3 ML SOL IH ONE (12:28)
[2023-07-05 13:45] VITALS: O2SAT 96
[2023-07-05] MEDS: FUROSEMIDE 20 MG/2 ML VIAL IVP ONE (15:26)
[2023-07-05 15:45] VITALS: BP 141/74; PULSE 91; RESP 12; TEMP 97.4; O2SAT 96
== END 2023-07-05 16:00 | disposition home or self-care (01) ==
LOC: MED 10:57
DX: R79.89 Other specified abnormal findings of blood chemistry (principal); Z20.822 Contact with and (suspected) exposure to COVID-19; R06.02 Shortness of breath; J45.909 Unspecified asthma, uncomplicated; K21.9 Gastro-esophageal reflux disease without esophagitis; E11.9 Type 2 diabetes mellitus without complications; N28.9 Disorder of kidney and ureter, unspecified; I10 Essential (primary) hypertension; Z86.73 Personal history of transient ischemic attack (TIA), and cerebral infarction without residual deficits; Z79.899 Other long term (current) drug therapy; Z79.4 Long term (current) use of insulin
CPT/HCPCS: 36415; 71046; 80053; 83880; 84484; 85025; 87426; 87804; 93005; 94640; 96374; 99285; J1940

== ENCOUNTER 2023-08-15 10:29 | Emergency (ER) | payer BC ==
[~2023-08-15] VITALS: Ht 149.9 cm; Wt 47.6 kg
[~2023-08-15 10:29] MED LIST changes: +HYDR-5856 PO; -LEVO250T89 PO; +NIFE60TA39 PO; -PRED20TA5 PO
[2023-08-15 11:02] VITALS: BP 208/106; PULSE 96; RESP 18; TEMP 97.3; O2SAT 94
[2023-08-15] MEDS: NIFEdipine 30 MG TABER PO ONE (11:48)
[2023-08-15] MEDS: ACETAMINOPHEN 325 MG TAB PO ONE (11:50)
[2023-08-15] MEDS ORDERED: ACET-2619 PO (12:15)
[2023-08-15] MEDS ORDERED: CYCL-711 PO (12:15)
[2023-08-15] MEDS: LIDOCAINE 5% 1 EA PATCH TP ONE (12:21)
[2023-08-15 12:25] VITALS: BP 165/77; PULSE 88; RESP 18; TEMP 98; O2SAT 95
== END 2023-08-15 12:25 | disposition home or self-care (01) ==
LOC: MED 10:29
DX: S09.90XA Unspecified injury of head, initial encounter (principal); E04.1 Nontoxic single thyroid nodule; J45.909 Unspecified asthma, uncomplicated; K21.9 Gastro-esophageal reflux disease without esophagitis; I12.0 Hypertensive chronic kidney disease with stage 5 chronic kidney disease or end stage renal disease; E11.22 Type 2 diabetes mellitus with diabetic chronic kidney disease; N18.6 End stage renal disease; Z99.2 Dependence on renal dialysis; Z86.73 Personal history of transient ischemic attack (TIA), and cerebral infarction without residual deficits; Z79.4 Long term (current) use of insulin; Z79.1 Long term (current) use of non-steroidal anti-inflammatories (NSAID); Z79.899 Other long term (current) drug therapy; W18.39XA Other fall on same level, initial encounter; Y93.89 Activity, other specified; Y92.090 Kitchen in other non-institutional residence as the place of occurrence of the external cause; Y99.8 Other external cause status
CPT/HCPCS: 70450; 72125; 72128; 82948; 99284

== ENCOUNTER 2023-08-17 19:49 | Emergency (ER) | payer BC ==
[~2023-08-17] VITALS: Ht 149.9 cm; Wt 49.4 kg
[~2023-08-17 19:49] MED LIST changes: +ACET-2619 PO; +CYCL-711 PO
[2023-08-17 20:00] VITALS: BP 149/76; PULSE 92; RESP 18; TEMP 98; O2SAT 97
[2023-08-17] MEDS: MORPHINE SULFATE 4 MG/ML SYR IM ONE (21:50)
[2023-08-17 22:50] VITALS: BP 192/95; PULSE 90; RESP 13; TEMP 98.9; O2SAT 96
== END 2023-08-17 22:50 | disposition home or self-care (01) ==
LOC: MED 19:49
DX: S51.811A Laceration without foreign body of right forearm, initial encounter (principal); M25.511 Pain in right shoulder; E11.9 Type 2 diabetes mellitus without complications; I10 Essential (primary) hypertension; Z87.448 Personal history of other diseases of urinary system; Z86.73 Personal history of transient ischemic attack (TIA), and cerebral infarction without residual deficits; Z98.890 Other specified postprocedural states; Z79.899 Other long term (current) drug therapy; Z79.4 Long term (current) use of insulin; W18.39XA Other fall on same level, initial encounter; Y92.89 Other specified places as the place of occurrence of the external cause; Y93.89 Activity, other specified; Y99.8 Other external cause status
CPT/HCPCS: 12002; 96372; 99283; J2270

== ENCOUNTER 2023-08-26 19:46 | Inpatient (IN) | payer BC ==
[~2023-08-26] VITALS: Ht 149.9 cm; Wt 44.0 kg
[2023-08-26 19:58] VITALS: BP 171/86; PULSE 100; RESP 18; TEMP 99.1; O2SAT 99
[2023-08-26 20:22] LABS: BASOPHILS % (AUTO) 0.9 % (0.0-2.0); EOSINOPHILS # (AUTO) 0.1 K/uL (0-0.4); EOSINOPHILS % (AUTO) 1.9 % (0.0-4.0); HEMATOCRIT 28.8 % (36-48); HEMOGLOBIN 9.3 g/dL (12.0-16.0); LYMPHOCYTES # (AUTO) 0.6 K/uL (2.5-16.5); LYMPHOCYTES % (AUTO) 16.2 % (20.5-51.1); MEAN CORPUSCULAR HEMOGLOBIN 29 pg (27-31); MEAN CORPUSCULAR HGB CONC 32 g/dL (33-37); MONOCYTES # (AUTO) 0.4 K/uL (0.8-1.0); MONOCYTES % (AUTO) 12.2 % (1.7-9.3); NEUTROPHILS # (AUTO) 2.5 K/uL (1.8-7.7); NEUTROPHILS % (AUTO) 68.8 % (42.2-75.2); PLATELET COUNT (AUTO) 141 K/uL (140-450); RED CELL DISTRIBUTION WIDTH 19.7 % (11.6-13.7); WHITE BLOOD COUNT (AUTO) 3.6 K/uL (4.8-10.8)
[2023-08-26 20:35] LABS: ANION GAP 21.3 (8-16); CALCIUM 7.7 mg/dL (8.5-10.1); CARBON DIOXIDE 21.6 mmol/L (21-32); CREATININE 3.9 mg/dL (0.6-1.3); POTASSIUM 4.9 mmol/L (3.5-5.1)
[2023-08-26] MEDS: ONDANSETRON 4 MG/2 ML VIAL IVP ONE (20:40)
[2023-08-26] MEDS: MORPHINE SULFATE 4 MG/ML SYR IVP ONE (20:43)
[2023-08-26] MEDS ORDERED: ALUMINUM HYD/MAG/SIMETHICONE 30 ML UDC PO PRN (22:20)
[2023-08-26] MEDS ORDERED: ZOLPIDEM 5 MG TAB PO PRN (22:20)
[2023-08-26] MEDS ORDERED: ONDANSETRON 4 MG/2 ML VIAL IVP PRN (22:20)
[2023-08-26] MEDS ORDERED: NITROGLYCERIN 0.4 MG TAB SL PRN (22:20)
[2023-08-26] MEDS ORDERED: DEXTROSE 50% 50 ML SYR IVP PRN (22:30)
[2023-08-26] MEDS: ASPIRIN 81 MG TAB.CHEW PO SCH (23:18)
[2023-08-26] MEDS: hydrALAZINE 20 MG/ML VIAL IVP PRN (23:20)
[2023-08-26 23:45] VITALS: PULSE 92; PULSE 93; RESP 18; O2SAT 95
[2023-08-27] MEDS: LORazepam 1 MG TAB PO PRN (00:50)
[2023-08-27 04:00] VITALS: BP 209/55; PULSE 101; PULSE 99; RESP 22; TEMP 98; O2SAT 93
[2023-08-27] MEDS: MORPHINE SULFATE 2 MG/ML SYR IVP PRN (04:03)
[2023-08-27] MEDS: BLOOD GLUCOSE MONITORING 1 DEV DEV FS SCH (06:30)
[2023-08-27] MEDS: INSULIN LISPRO SLIDING SCALE 100 UNITS/ML VIAL SUBQ PRN (06:31)
[2023-08-27 07:15] LABS: BASOPHILS # (AUTO) 0.1 K/uL (0.00-0.22); BASOPHILS % (AUTO) 2.3 % (0.0-2.0); EOSINOPHILS # (AUTO) 0.1 K/uL (0-0.4); EOSINOPHILS % (AUTO) 2.1 % (0.0-4.0); HEMOGLOBIN 9.6 g/dL (12.0-16.0); LYMPHOCYTES # (AUTO) 0.7 K/uL (2.5-16.5); LYMPHOCYTES % (AUTO) 13.4 % (20.5-51.1); MEAN CORPUSCULAR HEMOGLOBIN 30 pg (27-31); MEAN CORPUSCULAR HGB CONC 33 g/dL (33-37); MEAN CORPUSCULAR VOLUME 90.5 fL (80-94); MONOCYTES # (AUTO) 0.5 K/uL (0.8-1.0); MONOCYTES % (AUTO) 9.4 % (1.7-9.3); NEUTROPHILS # (AUTO) 3.7 K/uL (1.8-7.7); NEUTROPHILS % (AUTO) 72.8 % (42.2-75.2); PLATELET COUNT (AUTO) 148 K/uL (140-450); RED CELL DISTRIBUTION WIDTH 19.4 % (11.6-13.7); WHITE BLOOD COUNT (AUTO) 5.1 K/uL (4.8-10.8)
[2023-08-27 07:36] LABS: ALBUMIN 2.4 g/dL (3.4-5.0); ANION GAP 20.8 (8-16); CALCIUM 7.7 mg/dL (8.5-10.1); CARBON DIOXIDE 21.7 mmol/L (21-32); TOTAL BILIRUBIN 0.4 mg/dL (0.0-1.0); TOTAL PROTEIN, SERUM 7.4 g/dL (6.4-8.2)
[2023-08-27 07:46] LABS: POTASSIUM 6.5 mmol/L (3.5-5.1)
[2023-08-27 07:49] LABS: CREATININE 4.2 mg/dL (0.6-1.3)
[2023-08-27 08:00] VITALS: BP 196/96; PULSE 72; RESP 18; TEMP 97.1; O2SAT 94
[2023-08-27] MEDS: carvediloL 3.125 MG TAB PO SCH (09:22)
[2023-08-27] MEDS: DOCUSATE SODIUM 100 MG GELCAP PO SCH (09:22)
[2023-08-27] MEDS: BENAZEPRIL 5 MG TAB PO SCH (09:22)
[2023-08-27] MEDS: FUROSEMIDE 40 MG TAB PO SCH (09:23)
[2023-08-27] MEDS: hydrALAZINE 25 MG TAB PO SCH (09:23)
[2023-08-27] MEDS: LOSARTAN 25 MG TAB PO SCH (09:23)
[2023-08-27] MEDS: NIFEdipine 60 MG TABER PO SCH (09:23)
[2023-08-27] MEDS: ACETAMINOPHEN 325 MG TAB PO PRN (09:35)
[2023-08-27 12:00] VITALS: BP 202/105; PULSE 92; RESP 18; TEMP 97.5; O2SAT 98
[2023-08-27] MEDS ORDERED: HYDROcodone/APAP 5/325 MG 1 TAB TAB PO PRN (13:35)
[2023-08-27 16:00] VITALS: BP 155/90; PULSE 80; RESP 18; TEMP 99.4; O2SAT 96
[2023-08-27] MEDS: EPOETIN ALFA-EPBX 10,000 UNITS/ML VIAL IV SCH (17:16)
[2023-08-27 20:00] VITALS: BP 159/88; PULSE 91; PULSE 94; RESP 20; TEMP 97.9; O2SAT 96
[2023-08-27] MEDS ORDERED: QUETIAPINE FUMARATE PO SCH (21:00)
[2023-08-27] MEDS: QUEtiapine FUMARATE 25 MG TAB PO SCH (21:06)
[2023-08-27] MEDS: SIMVASTATIN 20 MG TAB PO SCH (21:07)
[2023-08-28] VITALS: BP 123/69; PULSE 118; PULSE 79; RESP 20; TEMP 97.4; O2SAT 97
[2023-08-28 04:00] VITALS: BP 141/77; PULSE 78; PULSE 82; RESP 20; TEMP 97; O2SAT 100
[2023-08-28 07:16] LABS: BASOPHILS % (AUTO) 0.8 % (0.0-2.0); EOSINOPHILS # (AUTO) 0.1 K/uL (0-0.4); EOSINOPHILS % (AUTO) 2.7 % (0.0-4.0); HEMATOCRIT 25.6 % (36-48); HEMOGLOBIN 8.5 g/dL (12.0-16.0); LYMPHOCYTES # (AUTO) 0.8 K/uL (2.5-16.5); LYMPHOCYTES % (AUTO) 20.3 % (20.5-51.1); MEAN CORPUSCULAR HEMOGLOBIN 30 pg (27-31); MEAN CORPUSCULAR HGB CONC 33 g/dL (33-37); MEAN CORPUSCULAR VOLUME 89.7 fL (80-94); MONOCYTES # (AUTO) 0.5 K/uL (0.8-1.0); MONOCYTES % (AUTO) 12.5 % (1.7-9.3); NEUTROPHILS # (AUTO) 2.4 K/uL (1.8-7.7); NEUTROPHILS % (AUTO) 63.7 % (42.2-75.2); PLATELET COUNT (AUTO) 126 K/uL (140-450); RED BLOOD CELL COUNT(AUTO) 2.85 MIL/uL (4.20-5.40); RED CELL DISTRIBUTION WIDTH 19.6 % (11.6-13.7); WHITE BLOOD COUNT (AUTO) 3.8 K/uL (4.8-10.8)
[2023-08-28 07:27] LABS: ANION GAP 12.7 (8-16); CALCIUM 7.6 mg/dL (8.5-10.1); CARBON DIOXIDE 28.7 mmol/L (21-32); CREATININE 3.2 mg/dL (0.6-1.3); POTASSIUM 4.4 mmol/L (3.5-5.1)
[2023-08-28] MEDS: VIT-B COMP/VIT-C/FOLIC ACID 1 TAB PO SCH (08:09)
[2023-08-28] MEDS ORDERED: CARV12.5 PO (10:10)
[2023-08-28 10:14] VITALS: BP 189/93; PULSE 79; RESP 18; TEMP 96.5
== END 2023-08-28 10:30 | disposition home or self-care (01) | DRG 194 ==
LOC: MED 19:46 → MTU 22:21
PROVIDERS: ADMIT Student in an Organized Health Care Education/Training Program; ATTEND Student in an Organized Health Care Education/Training Program
PROC: 5A1D70Z Performance of Urinary Filtration, Intermittent, Less than 6 Hours Per Day (ICD-10-PCS; principal; 2023-08-27)
DX: I13.2 Hypertensive heart and chronic kidney disease with heart failure and with stage 5 chronic kidney disease, or end stage renal disease (principal); E43 Unspecified severe protein-calorie malnutrition; N18.6 End stage renal disease; R18.8 Other ascites; E87.1 Hypo-osmolality and hyponatremia; E83.51 Hypocalcemia; R65.10 Systemic inflammatory response syndrome (SIRS) of non-infectious origin without acute organ dysfunction; E11.22 Type 2 diabetes mellitus with diabetic chronic kidney disease; D64.9 Anemia, unspecified; B19.20 Unspecified viral hepatitis C without hepatic coma; E87.5 Hyperkalemia; I50.33 Acute on chronic diastolic (congestive) heart failure; K74.69 Other cirrhosis of liver; I16.9 Hypertensive crisis, unspecified; Z86.73 Personal history of transient ischemic attack (TIA), and cerebral infarction without residual deficits; Z79.899 Other long term (current) drug therapy; Z68.1 Body mass index [BMI] 19.9 or less, adult; Z99.2 Dependence on renal dialysis
CPT/HCPCS: 36415; 71045; 80048; 80053; 82948; 83880; 84100; 84484; 85025; 87081; 90935; 93005; 96374; 96375; 99285; J0360; J1644; J1815; J2270; J2405; Q5106

== ENCOUNTER 2023-09-17 18:54 | Emergency (ER) | payer BC ==
[~2023-09-17] VITALS: Ht 149.9 cm; Wt 49.9 kg
[~2023-09-17 18:54] MED LIST changes: -ACET-9527 PO; +CARV12.5 PO; -DIPH25TA53 PO
[2023-09-17 19:20] VITALS: BP 164/30; PULSE 87; RESP 18; TEMP 99.6; O2SAT 98
[2023-09-17] MEDS: MORPHINE SULFATE 4 MG/ML SYR IM ONE (20:04)
[2023-09-17 20:30] VITALS: O2SAT 97
== END 2023-09-17 21:40 | disposition home or self-care (01) ==
LOC: MED 18:54
DX: S40.022A Contusion of left upper arm, initial encounter (principal); S50.12XA Contusion of left forearm, initial encounter; Z86.73 Personal history of transient ischemic attack (TIA), and cerebral infarction without residual deficits; E11.22 Type 2 diabetes mellitus with diabetic chronic kidney disease; I12.0 Hypertensive chronic kidney disease with stage 5 chronic kidney disease or end stage renal disease; N18.6 End stage renal disease; Z99.2 Dependence on renal dialysis; Z86.69 Personal history of other diseases of the nervous system and sense organs; Z79.899 Other long term (current) drug therapy; Z79.4 Long term (current) use of insulin; X58.XXXA Exposure to other specified factors, initial encounter; Y92.89 Other specified places as the place of occurrence of the external cause; Y93.89 Activity, other specified; Y99.8 Other external cause status
CPT/HCPCS: 73080; 96372; 99283; J2270

== ENCOUNTER 2023-09-19 17:32 | Emergency (ER) | payer BC ==
[~2023-09-19] VITALS: Ht 149.9 cm
[2023-09-19 17:51] VITALS: BP 126/66; PULSE 89; RESP 15; TEMP 98.2; O2SAT 97
[2023-09-19 19:49] LABS: BASOPHILS # (AUTO) 0.1 K/uL (0.00-0.22); BASOPHILS % (AUTO) 1.2 % (0.0-2.0); EOSINOPHILS # (AUTO) 0.1 K/uL (0-0.4); EOSINOPHILS % (AUTO) 1.4 % (0.0-4.0); HEMATOCRIT 24.1 % (36-48); HEMOGLOBIN 7.9 g/dL (12.0-16.0); LYMPHOCYTES # (AUTO) 0.7 K/uL (2.5-16.5); LYMPHOCYTES % (AUTO) 15.6 % (20.5-51.1); MEAN CORPUSCULAR HEMOGLOBIN 31 pg (27-31); MEAN CORPUSCULAR HGB CONC 33 g/dL (33-37); MEAN CORPUSCULAR VOLUME 94.5 fL (80-94); MONOCYTES # (AUTO) 0.4 K/uL (0.8-1.0); MONOCYTES % (AUTO) 9.6 % (1.7-9.3); NEUTROPHILS # (AUTO) 3.2 K/uL (1.8-7.7); NEUTROPHILS % (AUTO) 72.2 % (42.2-75.2); PLATELET COUNT (AUTO) 137 K/uL (140-450); RED BLOOD CELL COUNT(AUTO) 2.55 MIL/uL (4.20-5.40); RED CELL DISTRIBUTION WIDTH 18.3 % (11.6-13.7); WHITE BLOOD COUNT (AUTO) 4.5 K/uL (4.8-10.8)
[2023-09-19 20:03] LABS: CALCIUM 8.3 mg/dL (8.5-10.1); CREATININE 2.4 mg/dL (0.6-1.3)
[2023-09-19 20:05] LABS: INR 0.98 (0.8-1.2); PROTHROMBIN TIME 10.3 secs (10.8-13.4)
== END 2023-09-19 22:45 | disposition home or self-care (01) ==
LOC: MED 17:32
DX: E11.22 Type 2 diabetes mellitus with diabetic chronic kidney disease (principal); I12.0 Hypertensive chronic kidney disease with stage 5 chronic kidney disease or end stage renal disease; N18.6 End stage renal disease; D63.1 Anemia in chronic kidney disease; Z99.2 Dependence on renal dialysis; Z79.4 Long term (current) use of insulin; Z86.69 Personal history of other diseases of the nervous system and sense organs; Z86.73 Personal history of transient ischemic attack (TIA), and cerebral infarction without residual deficits; Z79.1 Long term (current) use of non-steroidal anti-inflammatories (NSAID); Z79.899 Other long term (current) drug therapy
CPT/HCPCS: 36415; 80048; 85025; 85610; 86886; 86900; 86901; 99283

== ENCOUNTER 2023-10-11 17:48 | Emergency (ER) | payer BC ==
[~2023-10-11] VITALS: Ht 149.9 cm; Wt 49.9 kg
[2023-10-11 18:20] VITALS: BP 185/74; PULSE 91; RESP 18; TEMP 98.2; O2SAT 96
[2023-10-11 18:54] VITALS: PULSE 91; PULSE 92; RESP 18; RESP 20; O2SAT 94; O2SAT 95
[2023-10-11] MEDS: IPRATROPIUM 0.02% 0.5 MG/2.5 ML NEBU INH ONE (18:54)
[2023-10-11] MEDS: ALBUTEROL 0.083% 2.5 MG/3 ML NEBU INH ONE (18:54)
[2023-10-11 19:25] LABS: BASOPHILS % (AUTO) 1.1 % (0.0-2.0); HEMATOCRIT 34.4 % (36-48); HEMOGLOBIN 11.1 g/dL (12.0-16.0); LYMPHOCYTES # (AUTO) 0.6 K/uL (2.5-16.5); LYMPHOCYTES % (AUTO) 12.6 % (20.5-51.1); MEAN CORPUSCULAR HEMOGLOBIN 29 pg (27-31); MEAN CORPUSCULAR HGB CONC 32 g/dL (33-37); MONOCYTES # (AUTO) 0.5 K/uL (0.8-1.0); MONOCYTES % (AUTO) 10.6 % (1.7-9.3); NEUTROPHILS # (AUTO) 3.3 K/uL (1.8-7.7); NEUTROPHILS % (AUTO) 74.7 % (42.2-75.2); PLATELET COUNT (AUTO) 112 K/uL (140-450); RED BLOOD CELL COUNT(AUTO) 3.91 MIL/uL (4.20-5.40); RED CELL DISTRIBUTION WIDTH 15.4 % (11.6-13.7); WHITE BLOOD COUNT (AUTO) 4.4 K/uL (4.8-10.8)
[2023-10-11 19:37] LABS: CALCIUM 8.8 mg/dL (8.5-10.1); CARBON DIOXIDE 25.8 mmol/L (21-32); CREATININE 3.5 mg/dL (0.6-1.3); POTASSIUM 3.8 mmol/L (3.5-5.1)
[2023-10-11] MEDS ORDERED: MORPHINE SULFATE 4 MG/ML SYR ONE (20:09)
[2023-10-11] MEDS: MORPHINE SULFATE 4 MG/ML SYR IM ONE (20:14)
[2023-10-11 20:59] VITALS: BP 190/94; PULSE 91; RESP 18; TEMP 98.2; O2SAT 94
== END 2023-10-11 20:59 | disposition home or self-care (01) ==
LOC: MED 17:48
DX: H92.22 Otorrhagia, left ear (principal); R06.02 Shortness of breath; R07.9 Chest pain, unspecified; E11.22 Type 2 diabetes mellitus with diabetic chronic kidney disease; I12.0 Hypertensive chronic kidney disease with stage 5 chronic kidney disease or end stage renal disease; N18.6 End stage renal disease; Z99.2 Dependence on renal dialysis; Z86.73 Personal history of transient ischemic attack (TIA), and cerebral infarction without residual deficits; Z86.69 Personal history of other diseases of the nervous system and sense organs; Z79.899 Other long term (current) drug therapy
CPT/HCPCS: 36415; 71045; 80048; 84484; 85025; 93005; 94640; 96372; 99285; J2270; J7613; J7644; Q0092

== ENCOUNTER 2023-12-06 16:48 | Inpatient (IN) | payer BC ==
[~2023-12-06] VITALS: Ht 147.3 cm; Wt 54.4 kg
[2023-12-06 17:19] VITALS: BP 151/69; PULSE 84; RESP 20; TEMP 97.9; O2SAT 98
[2023-12-06 17:45] VITALS: O2SAT 97
[2023-12-06] MEDS: MORPHINE SULFATE 4 MG/ML SYR IVP ONE (18:57)
[2023-12-06 19:06] LABS: BASOPHILS % (AUTO) 0.3 % (0.0-2.0); EOSINOPHILS # (AUTO) 0.1 K/uL (0-0.4); EOSINOPHILS % (AUTO) 0.7 % (0.0-4.0); HEMOGLOBIN 11.1 g/dL (12.0-16.0); LYMPHOCYTES # (AUTO) 0.5 K/uL (2.5-16.5); LYMPHOCYTES % (AUTO) 6.9 % (20.5-51.1); MEAN CORPUSCULAR HEMOGLOBIN 28 pg (27-31); MEAN CORPUSCULAR HGB CONC 32 g/dL (33-37); MEAN CORPUSCULAR VOLUME 86.7 fL (80-94); MONOCYTES # (AUTO) 0.6 K/uL (0.8-1.0); MONOCYTES % (AUTO) 7.8 % (1.7-9.3); NEUTROPHILS # (AUTO) 6.7 K/uL (1.8-7.7); NEUTROPHILS % (AUTO) 84.3 % (42.2-75.2); PLATELET COUNT (AUTO) 168 K/uL (140-450); RED BLOOD CELL COUNT(AUTO) 4.04 MIL/uL (4.20-5.40); RED CELL DISTRIBUTION WIDTH 18.4 % (11.6-13.7)
[2023-12-06 19:28] LABS: ALANINE AMINOTRANSFERASE 19 U/L (12-78); ALBUMIN 2.2 g/dL (3.4-5.0); ALKALINE PHOSPHATASE 238 U/L (50-136); ASPARTATE AMINOTRANSFERASE 17 U/L (15-37); BILIRUBIN,DIRECT 0.1 mg/dL (0.0-0.3); TOTAL BILIRUBIN 0.2 mg/dL (0.0-1.0); TOTAL PROTEIN, SERUM 8.1 g/dL (6.4-8.2)
[2023-12-06 19:29] LABS: LACTIC ACID 0.9 mmol/L (0.4-2.0)
[2023-12-06 19:41] LABS: ANION GAP 11.8 (8-16); CALCIUM 8.1 mg/dL (8.5-10.1); CARBON DIOXIDE 32.1 mmol/L (21-32); POTASSIUM 3.9 mmol/L (3.5-5.1)
[2023-12-06] MEDS ORDERED: ACETAMINOPHEN 325 MG TAB PO PRN (21:40)
[2023-12-06] MEDS ORDERED: MORPHINE SULFATE 2 MG/ML SYR IVP PRN (21:40)
[2023-12-06] MEDS: FUROSEMIDE 40 MG/4 ML VIAL IVP SCH (22:42)
[2023-12-06 23:10] VITALS: PULSE 93; RESP 18; O2SAT 96
[2023-12-06 23:22] VITALS: PULSE 91; RESP 20; O2SAT 96
[2023-12-06 23:53] VITALS: PULSE 91; RESP 20; O2SAT 96
[2023-12-07] VITALS (8 sets, daily range): BP systolic 155–212; BP diastolic 65–93; PULSE 86–92; RESP 18–21; TEMP 97.1–98.9; O2SAT 92–100
[2023-12-07] MEDS ORDERED: DRY DRESSING TP PRN (00:05)
[2023-12-07] MEDS ORDERED: MORPHINE SULFATE 2 MG/ML SYR IVP PRN (01:25)
[2023-12-07] MEDS: HYDROcodone/APAP 5/325 MG 1 TAB TAB PO PRN (01:36)
[2023-12-07] MEDS: HYDROmorphone 1 MG/ML AMP IVP PRN (05:47)
[2023-12-07 06:17] LABS: ANION GAP 15.5 (8-16); CARBON DIOXIDE 26.1 mmol/L (21-32); POTASSIUM 4.6 mmol/L (3.5-5.1); TOTAL BILIRUBIN 0.3 mg/dL (0.0-1.0); TOTAL PROTEIN, SERUM 7.9 g/dL (6.4-8.2)
[2023-12-07 06:23] LABS: BASOPHILS % (AUTO) 0.5 % (0.0-2.0); EOSINOPHILS # (AUTO) 0.1 K/uL (0-0.4); EOSINOPHILS % (AUTO) 0.8 % (0.0-4.0); HEMATOCRIT 34.1 % (36-48); HEMOGLOBIN 10.7 g/dL (12.0-16.0); MEAN CORPUSCULAR HEMOGLOBIN 27 pg (27-31); MEAN CORPUSCULAR HGB CONC 32 g/dL (33-37); MEAN CORPUSCULAR VOLUME 87.1 fL (80-94); MONOCYTES # (AUTO) 0.6 K/uL (0.8-1.0); MONOCYTES % (AUTO) 6.4 % (1.7-9.3); NEUTROPHILS # (AUTO) 7.8 K/uL (1.8-7.7); NEUTROPHILS % (AUTO) 82.3 % (42.2-75.2); PLATELET COUNT (AUTO) 169 K/uL (140-450); RED BLOOD CELL COUNT(AUTO) 3.92 MIL/uL (4.20-5.40); RED CELL DISTRIBUTION WIDTH 18.2 % (11.6-13.7); WHITE BLOOD COUNT (AUTO) 9.5 K/uL (4.8-10.8)
[2023-12-07] MEDS: BLOOD GLUCOSE MONITORING 1 DEV DEV FS SCH (06:41)
[2023-12-07] MEDS: INSULIN LISPRO SLIDING SCALE 100 UNITS/ML VIAL SUBQ PRN (06:43)
[2023-12-07 06:53] LABS: CREATININE 4.3 mg/dL (0.6-1.3)
[2023-12-07] MEDS: FUROSEMIDE 40 MG/4 ML VIAL IVP SCH (09:27)
[2023-12-07] MEDS: hydrALAZINE 25 MG TAB PO SCH (12:41)
[2023-12-07 14:00] LABS: AMPHETAMINE, URINE NEGATIVE ng/ml (NEG <=1000); BARBITURATE, URINE NEGATIVE ng/ml (NEG <=200); BENZODIAZEPINE, URINE NEGATIVE ng/mL (NEG <=200); CANNABINOID, URINE NEGATIVE ng/mL (NEG <=50); COCAINE, URINE NEGATIVE ng/mL (NEG <=300); OPIATE, URINE POSITIVE ng/mL (NEG <=2000); PHENCYCLIDINE SCREEN,URINE NEGATIVE ng/mL (NEG <=25)
[2023-12-07] MEDS ORDERED: VANCOMYCIN PER PHARMACY MC PRN (16:00)
[2023-12-07] MEDS: VANCOMYCIN 1,000 MG in NACL 0.9% 250 ML IV SCH (16:33)
[2023-12-07] MEDS: INSULIN LANTUS 100 UNITS/ML 10 ML VIAL SUBQ SCH (21:00)
[2023-12-07] MEDS: carvediloL 12.5 MG TAB PO SCH (21:20)
[2023-12-07] MEDS: QUEtiapine FUMARATE 100 MG TAB ONE (22:11)
[2023-12-07] MEDS: QUEtiapine FUMARATE 100 MG TAB PO ONE (22:13)
[2023-12-08] VITALS (10 sets, daily range): BP systolic 134–208; BP diastolic 56–102; PULSE 76–91; RESP 18–22; TEMP 97.3–98.7; O2SAT 94–100
[2023-12-08 06:23] LABS: ANION GAP 11.6 (8-16); CALCIUM 8.1 mg/dL (8.5-10.1); CREATININE 3.3 mg/dL (0.6-1.3); POTASSIUM 3.6 mmol/L (3.5-5.1)
[2023-12-08] MEDS: ECOTRIN 81 MG TABEC PO SCH (08:16)
[2023-12-08] MEDS: ATORVASTATIN 20 MG TAB PO SCH (08:18)
[2023-12-08] MEDS: GABAPENTIN 100 MG CAP PO SCH (08:19)
[2023-12-08] MEDS: NIFEdipine 60 MG TABER PO SCH (08:19)
[2023-12-08] MEDS: VANCOMYCIN 1,000 MG in DEXTROSE 5% 250 ML IV SCH (11:48)
[2023-12-08] MEDS: QUEtiapine FUMARATE 100 MG TAB PO SCH (21:14)
[2023-12-09] VITALS (11 sets, daily range): BP systolic 99–147; BP diastolic 34–92; PULSE 63–93; RESP 18–23; TEMP 96–98.3; O2SAT 67–99
[2023-12-09] MEDS: DEXTROSE 50% 50 ML SYR IVP PRN (04:30)
[2023-12-09] MEDS: DEXT 5% / NACL 0.9% 1,000 ML IV SCH (05:31)
[2023-12-09] MEDS: BLOOD GLUCOSE MONITORING 1 DEV DEV FS SCH ×2 (06:18→20:00)
[2023-12-09 06:38] LABS: BASOPHILS % (AUTO) 0.6 % (0.0-2.0); EOSINOPHILS # (AUTO) 0.1 K/uL (0-0.4); EOSINOPHILS % (AUTO) 1.2 % (0.0-4.0); HEMATOCRIT 25.5 % (36-48); HEMOGLOBIN 8.1 g/dL (12.0-16.0); LYMPHOCYTES # (AUTO) 0.6 K/uL (2.5-16.5); LYMPHOCYTES % (AUTO) 9.6 % (20.5-51.1); MEAN CORPUSCULAR HEMOGLOBIN 28 pg (27-31); MEAN CORPUSCULAR HGB CONC 32 g/dL (33-37); MEAN CORPUSCULAR VOLUME 86.6 fL (80-94); MONOCYTES # (AUTO) 0.5 K/uL (0.8-1.0); MONOCYTES % (AUTO) 8.6 % (1.7-9.3); NEUTROPHILS # (AUTO) 5.1 K/uL (1.8-7.7); PLATELET COUNT (AUTO) 144 K/uL (140-450); RED BLOOD CELL COUNT(AUTO) 2.95 MIL/uL (4.20-5.40); RED CELL DISTRIBUTION WIDTH 18.3 % (11.6-13.7); WHITE BLOOD COUNT (AUTO) 6.3 K/uL (4.8-10.8)
[2023-12-09] MEDS ORDERED: BLOOD GLUCOSE MONITORING 1 DEV DEV FS SCH (07:00)
[2023-12-09 08:28] LABS: ANION GAP 12.7 (8-16); CALCIUM 7.8 mg/dL (8.5-10.1); CARBON DIOXIDE 28.7 mmol/L (21-32); POTASSIUM 4.4 mmol/L (3.5-5.1)
[2023-12-09 08:30] LABS: CREATININE 4.5 mg/dL (0.6-1.3)
[2023-12-09] MEDS: MUPIROCIN CA NASAL 2% 1GM TUBE NS SCH (08:44)
[2023-12-09] MEDS ORDERED: GAUZE TP PRN (08:45)
[2023-12-09] MEDS: CHLORHEXADINE GLUC 2% CLOTH TP SCH (09:05)
[2023-12-09] MEDS: GAUZE TP SCH (12:19)
[2023-12-09] MEDS ORDERED: ALBUTEROL SULFATE/IPRATROPIU 3 ML SOL IH PRN (16:30)
[2023-12-09] MEDS: AZITHROMYCIN 250 MG TAB PO SCH (16:51)
[2023-12-09 17:21] LABS: BLOOD GAS BASE EXCESS -3.4 mmol/L (-2.0-3.0); BLOOD GAS HCO3 22.1 mmol/L (21.0-28.0); BLOOD GAS O2 SAT% 97.5 % (94.0-98.0); BLOOD GAS PCO2 41.9 mmHg (32.0-45.0); BLOOD GAS PH 7.341 (7.350-7.450); BLOOD GAS PO2 100.9 mmHg (83.0-108.0)
[2023-12-09] MEDS ORDERED: LORazepam 2 MG/ML VIAL IVP SCH (18:21)
[2023-12-09 20:31] LABS: LACTIC ACID 1.2 mmol/L (0.4-2.0)
[2023-12-10] VITALS (10 sets, daily range): BP systolic 113–157; BP diastolic 52–77; PULSE 69–89; RESP 16–20; TEMP 97.1–98.1; O2SAT 92–100
[2023-12-10 07:30] LABS: ALBUMIN 1.7 g/dL (3.4-5.0); ANION GAP 17.1 (8-16); CALCIUM 7.4 mg/dL (8.5-10.1); CARBON DIOXIDE 25.3 mmol/L (21-32); MAGNESIUM 2.1 mg/dL (1.8-2.4); POTASSIUM 4.4 mmol/L (3.5-5.1); TOTAL BILIRUBIN 0.3 mg/dL (0.0-1.0); TOTAL PROTEIN, SERUM 6.8 g/dL (6.4-8.2)
[2023-12-10 07:36] LABS: CREATININE 5.3 mg/dL (0.6-1.3)
[2023-12-10 07:37] LABS: PHOSPHORUS 9.2 mg/dL (2.5-4.9)
[2023-12-10 07:41] LABS: BASOPHILS % (AUTO) 0.2 % (0.0-2.0); EOSINOPHILS % (AUTO) 0.1 % (0.0-4.0); HEMATOCRIT 24.9 % (36-48); LYMPHOCYTES # (AUTO) 0.9 K/uL (2.5-16.5); LYMPHOCYTES % (AUTO) 7.2 % (20.5-51.1); MEAN CORPUSCULAR HEMOGLOBIN 28 pg (27-31); MEAN CORPUSCULAR HGB CONC 32 g/dL (33-37); MEAN CORPUSCULAR VOLUME 86.2 fL (80-94); MONOCYTES # (AUTO) 0.8 K/uL (0.8-1.0); MONOCYTES % (AUTO) 6.4 % (1.7-9.3); NEUTROPHILS # (AUTO) 10.7 K/uL (1.8-7.7); NEUTROPHILS % (AUTO) 86.1 % (42.2-75.2); PLATELET COUNT (AUTO) 131 K/uL (140-450); RED BLOOD CELL COUNT(AUTO) 2.89 MIL/uL (4.20-5.40); RED CELL DISTRIBUTION WIDTH 18.5 % (11.6-13.7); WHITE BLOOD COUNT (AUTO) 12.4 K/uL (4.8-10.8)
[2023-12-10] MEDS: LORazepam 2 MG/ML VIAL IVP SCH (17:02)
[2023-12-10] MEDS: EPOETIN ALFA-EPBX 10,000 UNITS/ML VIAL IV SCH (17:50)
[2023-12-11 04:00] VITALS: BP 133/71; PULSE 78; RESP 18; TEMP 97; O2SAT 90
[2023-12-11 06:59] LABS: BASOPHILS % (AUTO) 0.2 % (0.0-2.0); EOSINOPHILS # (AUTO) 0.1 K/uL (0-0.4); EOSINOPHILS % (AUTO) 1.3 % (0.0-4.0); HEMATOCRIT 24.4 % (36-48); HEMOGLOBIN 7.8 g/dL (12.0-16.0); LYMPHOCYTES # (AUTO) 1.2 K/uL (2.5-16.5); LYMPHOCYTES % (AUTO) 12.3 % (20.5-51.1); MEAN CORPUSCULAR HEMOGLOBIN 28 pg (27-31); MEAN CORPUSCULAR HGB CONC 32 g/dL (33-37); MEAN CORPUSCULAR VOLUME 86.1 fL (80-94); MONOCYTES # (AUTO) 0.9 K/uL (0.8-1.0); MONOCYTES % (AUTO) 8.8 % (1.7-9.3); NEUTROPHILS # (AUTO) 7.6 K/uL (1.8-7.7); NEUTROPHILS % (AUTO) 77.4 % (42.2-75.2); PLATELET COUNT (AUTO) 127 K/uL (140-450); RED BLOOD CELL COUNT(AUTO) 2.83 MIL/uL (4.20-5.40); RED CELL DISTRIBUTION WIDTH 18.5 % (11.6-13.7); WHITE BLOOD COUNT (AUTO) 9.8 K/uL (4.8-10.8)
[2023-12-11 07:27] LABS: ALBUMIN 1.6 g/dL (3.4-5.0); ANION GAP 12.7 (8-16); CALCIUM 7.6 mg/dL (8.5-10.1); CARBON DIOXIDE 28.4 mmol/L (21-32); CREATININE 3.4 mg/dL (0.6-1.3); PHOSPHORUS 6.4 mg/dL (2.5-4.9); POTASSIUM 4.1 mmol/L (3.5-5.1); TOTAL BILIRUBIN 0.3 mg/dL (0.0-1.0); TOTAL PROTEIN, SERUM 6.4 g/dL (6.4-8.2)
[2023-12-11 09:35] VITALS: O2SAT 92
[2023-12-11 12:32] VITALS: BP 136/64; PULSE 89; RESP 17; TEMP 98.1
[2023-12-19] MEDS ORDERED: AMPI1PDS18 IV (10:40)
== END 2023-12-11 13:20 | DRG 197 ==
LOC: MED 16:48 → MTU 21:42
PROVIDERS: ADMIT Student in an Organized Health Care Education/Training Program; ATTEND Student in an Organized Health Care Education/Training Program
PROC: 5A1D70Z Performance of Urinary Filtration, Intermittent, Less than 6 Hours Per Day (ICD-10-PCS; principal; 2023-12-07)
PROC: 5A1D70Z Performance of Urinary Filtration, Intermittent, Less than 6 Hours Per Day (ICD-10-PCS; 2023-12-10)
DX: E11.52 Type 2 diabetes mellitus with diabetic peripheral angiopathy with gangrene (principal); J96.01 Acute respiratory failure with hypoxia; J69.0 Pneumonitis due to inhalation of food and vomit; I13.2 Hypertensive heart and chronic kidney disease with heart failure and with stage 5 chronic kidney disease, or end stage renal disease; E43 Unspecified severe protein-calorie malnutrition; R78.81 Bacteremia; N18.6 End stage renal disease; D63.1 Anemia in chronic kidney disease; I69.354 Hemiplegia and hemiparesis following cerebral infarction affecting left non-dominant side; E11.22 Type 2 diabetes mellitus with diabetic chronic kidney disease; G40.909 Epilepsy, unspecified, not intractable, without status epilepticus; I50.9 Heart failure, unspecified; Z99.2 Dependence on renal dialysis; I74.3 Embolism and thrombosis of arteries of the lower extremities; Z68.25 Body mass index [BMI] 25.0-25.9, adult; Z22.322 Carrier or suspected carrier of Methicillin resistant Staphylococcus aureus; Z79.899 Other long term (current) drug therapy; Z98.891 History of uterine scar from previous surgery; Z79.4 Long term (current) use of insulin
CPT/HCPCS: 36415; 36600; 71045; 73630; 78582; 80048; 80053; 80076; 80202; 80305; 82803; 82948; 83605; 83735; 83880; 84100; 84484; 85025; 85379; 85651; 87040; 87070; 87075; 87081; 87186; 87205; 90935; 93005; 93925; 93970; 93971; 94729; 96374; 96375; 97163-GP; 97530; 99285; J0696; J1171; J1815; J1940; J2060; J2270; J3370; J7030; J7060; Q0092; Q5106